=== PATIENT | female | born 1950 | race Caucasian/White ===

== ENCOUNTER → 2017-01-11 | Outpatient (CLI) | payer MEDICARE, OTHER ==
[~2017-01-11] MED LIST: ACET-2267 PO; APIX5TAB2 PO; ASPI-983 PO; ASPI325T32 PO; Aspirin PO; BISA5TAB8 PO; BISMUTH; BO30SU PR; CARV12.52 PO; CARV12.53 PO; CHOL10007 PO; CHOL200049 PO; CYAN100088 PO; CYCL5TAB PO; DCS100C PO; DIAZ5TAB3 PO; DIGO250T PO; DIPH25CA6 PO; DIPH28CR8 TP; DIPH50CA PO; DOXE25CA46 PO; DULO60CA58 PO; FENO145T20 PO; FERR-74 PO; FEXO180T84 PO; FURO40TA4 PO; GABA-488 PO; GABA-490 PO; GLIP10TA13 PO; HYDR-3714 PO; HYDR-3812 PO; HYDR50TA76 PO; HYOS0.1217 SL; INSU100I23 SC; INSU100I29 SC; INSU100V SC; INSU100V5 SQ; INSU100V6 SQ; LEVO300T5 PO; LISI-556 PO; LOPE-134 PO; LORA0.5T34 PO; LVT.025T PO; MELA3TAB PO; MELA5TAB PO; MENT71OI TP; METO-333 PO; METO10TA3 PO; METO25TA2 PO; MINE120C3 TP; MORP-33 PO; MORP15TA PO; MORPHINE PO; NITR-65 PO; NYST1POW22 MC; NYST60PO TOP; OMEP20CA12 PO; ONDA4TAB11 PO; ONDA4TAB2 PO; PHEN-826 PO; POLY255P PO; POTA10TA36 PO; POTA20TA15 PO; PRAM1.5T5 PO; PROM25TA14 PO; RIVA20TA PO; SPIR25TA3 PO; SPRN25T PO; SULF-222 PO; TEMA15CA PO; TMZP15C PO; TR1C15 TOP; TRIA15CR TP; [UNRECOGNIZED DRUG - CODE] PO
[2017-01-11 21:17] LABS: BILIRUBIN,URINE NEGATIVE (NEGATIVE); KETONES,URINE NEGATIVE (NEGATIVE); LEUKOCYTE ESTERASE ,URINE 2+ (NEGATIVE); NITRITE,URINE NEGATIVE (NEGATIVE); PH,URINE 7 (5-9); PROTEIN,URINE NEGATIVE (NEGATIVE); UROBILINOGEN,URINE 4 MG/DL (NORMAL)
== END ==
LOC: LABNPT 16:38
PROVIDERS: ATTEND Nurse Practitioner
DX: R30.0 Dysuria (principal)
CPT/HCPCS: 81000; 87077; 87088; 87186

== ENCOUNTER 2017-03-06 10:21 | Inpatient (IN) | payer MEDICARE, OTHER, MEDICAID ==
[~2017-03-06] VITALS: Ht 170.2 cm; Wt 209.2 kg
--- OUTSIDE RECORDS SUMMARY | 2017-03-06 10:27 | XMS REPORT ---
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 Role Phone Aristeo Young PCP Encounter [id number] Date(s): 02/13/17 - 02/08/[address] [id number] Attending Physician: Aristeo Young MD Vital Signs No data available for this section Problem List Condition Effective Dates Status Health Status Informant Allergic Active rhinitis(Confirmed) Diabetes(Confirmed) Active Hypertension(Confirm Active ed) Morbid Active obesity(Confirmed) Obstructive sleep Active apnea syndrome in adult(Confirmed) Respiratory Active acidosis(Confirmed) Respiratory failure Active with hypoxia(Confirmed) Allergies, Adverse Reactions, Alerts Substance Reaction Severity Status Levaquin Active mushrooms Active nafcillin Active Medications No data available for this section Results No data available for this section Immunizations Given and Recorded Vaccine Date Status Refusal Reason influenza virus vaccine 07/18/15 Given influenza virus vaccine 06/06/12 Given Procedures No data available for this section Social History No data available for this section Assessment and Plan No data available for this section
--- OUTSIDE RECORDS SUMMARY | 2017-03-06 10:27 | XMS REPORT | Continuity of Care Document ---
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. Acute renal failure syndrome (disorder) 07/22/2015 Diagnosis 07/26/2015 [facility], [facility]. Chronic pain (finding) 07/22 Diagnosis 07/26/2015 [facility], [facility]. Low blood pressure (disorder) 07/22/2015 Diagnosis 2014 [facility], [facility]. Restless legs (disorder) Diagnosis 07/26/2015 [facility], [facility]. Diabetes mellitus (disorder) 07/17/2015 Diagnosis 2014 [facility], [facility]. Obstructive sleep apnea of adult (disorder) 07/17/2015 Diagnosis 07/26/2015 [facility], [facility]. Respiratory failure (disorder) 07/17/2015 Diagnosis 07/26 [facility], [facility]. Respiratory acidosis (disorder) 07/17/2015 Diagnosis [facility] , [facility]. Morbid obesity (disorder) Diagnosis 07/26/2015 [facility], [facility]. Allergic rhinitis (disorder) Active Problem 02/12/2017 [facility], [facility] Diabetes mellitus (disorder) Active Problem 02/12/2017 [facility], [facility] Hypertensive disorder, systemic arterial (disorder) Active Problem 02/12/2017 [facility], [facility] Morbid obesity (disorder) Active Problem 02/12/2017 [facility], [facility], [facility]. Obstructive sleep apnea of adult (disorder) Active Problem 02/12/2017 [facility], [facility]. Respiratory acidosis (disorder) Active Problem 2016 [facility] Respiratory failure (disorder) Active Problem 02/12/2017 [facility] , [facility]. Medications Medication Details Route Status Patient Instructions Ordering Provider Order Date Source No Known Medications No known medications Active Psychiatric Allergies, Adverse Reactions, Alerts Substance Category Reaction Severity Reaction type Status Date Reported Comments Source Levofloxacin Assertion Drug allergy [facility], [facility]. mushrooms Assertion Food allergy [facility], [facility]. Nafcillin Assertion Drug allergy [facility], [facility]. Immunizations Immunization Date Given Site Status Last Updated Comments Source influenza virus vaccine 07/18/2015 Right Deltoid influenza virus vaccine [place] [facility] influenza virus vaccine 06/06/2012 Right Deltoid influenza virus vaccine [place] [facility], [facility]. Results Vital Signs Encounters Location Location Details Encounter Type Encounter Number Reason For Visit Attending Provider ADM Date DC Date Status [id number] [id number] Ludin Gaytan 07/17/201507/22 Active [facility], [facility]. OM [id number] Inpatient [id number] Jeff Grossman 10/28/2015 11/14/2015 Active [facility], [facility]. [facility] [id number] Clinic ( Outpatient) [id number] . [facility] INR Clinic 10/31/2015 Active [facility] Cancel/ No Show [id number] Lori Veronica 12/14/2015 12/16/2015 [facility] [id number] Clinic ( Outpatient) [id number] Aristeo Young 12/26/2016 Active [facility] [id number] Clinic ( Outpatient) [id number] Aristeo Young 02/13/2017 Active [facility] [id number] Aristeo Young 02/13/2017 02/08/2017 [facility] Procedures Procedure Code Date Perfomer Comments Source Echocardiography, transthoracic, real-time with image documentation (2D), includes M-mode recording, when performed, complete, with spectral Doppler echocardiography, and with color flow Doppler echocardiography [id number] 10/28/2015 [facility], [facility]. No data available for this section [facility] Plan of Care Social History Assessment and Plan Family History Value Date Source Advance Directives Order Name Results Value Date Source
--- OUTSIDE RECORDS SUMMARY | 2017-03-06 10:28 | XMS REPORT | Continuity of Care Document ---
Author Author [facility] Organization 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 If you do not see the information that you expected, contact Release of Information in the Health Information Management department at [phone] for further assistance in locating additional records.[facility] Active Allergies and Adverse Reactions Allergen Noted Date Severity Reactions Comments Mushroom 09/23/2012 Low NAUSEA AND VOMITING Nafcillin 10/15/2013 Low SEE COMMENTS Acute interstitial nephritis Current Medications Prescription Sig. Disp. Refills Start End Date Status Date oxybutynin XL (DITROPAN Take 10 mg by mouth Active XL) 10 mg tablet daily. aspirin EC 325 mg tablet Take 1 Tab by mouth 90 Tab 0 09/11/19 Active daily. 13 cholecalciferol (Vitamin Take 2,000 Units by mouth Active D3) (VITAMIN D-3) 1,[address] daily[address] units tablet DULoxetine [address] (CYMBALTA) Take 60 mg by mouth Active 60 mg capsule daily. pramipexole (MIRAPEX) 1.5 Take 1.5 mg by mouth at Active mg tablet bedtime daily. 1 mg at 18:00, 1.5 mg at 21:00 ondansetron (ZOFRAN ODT) Take 4 mg by mouth every Active 4 mg rapid dissolve 8 hours as needed. tablet pramipexole (MIRAPEX) 1 Take 1 mg by mouth daily. Active mg tablet 1 mg at 18:00, 1.5 mg at 21:00 nystatin (MYCOSTATIN) Take 500,000 Units by Active 100,000 units/mL oral mouth four times daily. suspension omeprazole DR(+) Take 20 mg by mouth twice Active (PRILOSEC) 20 mg capsule daily. morphine SR (MS CONTIN; Take 15 mg by mouth every Active ORAMORPH SR) 15 mg tablet 12 hours Take 30mg tab with 15 mg tab for a total dose of 45mg twice daily docusate (COLACE) 100 mg Take 100 mg by mouth Active capsule twice daily as needed. fexofenadine(+) (CYRUS) Take 180 mg by mouth Active 180 mg tablet daily as needed. lisinopril (PRINIVIL; Take 20 mg by mouth Active ZESTRIL) 20 mg tablet daily. LORazepam (ATIVAN) 0.5 mg Take 0.5 mg by mouth Active tablet every 8 hours as needed. melatonin 10 mg tab Take 10 mg by mouth at Active bedtime daily. metformin-ER(+) Take 1,000 mg by mouth Active (FORTAMET) 1,000 mg twice daily with meals. tablet lactobacillus acidoph & Take 1 Tab by mouth Active bulgar(+) (LACTINEX) 100 daily. million cell packet levothyroxine (SYNTHROID) Take 1 Tab by mouth 30 Tab 0 10/07/19 Active 300 mcg tablet daily. 14 glipiZIDE (GLUCOTROL) 5 Take 1 Tab by mouth daily 180 Tab 10/16/19 Active mg tablet with breakfast. 14 carvedilol (COREG) 12.5 Take 0.5 Tabs by mouth 180 Tab 10/16/19 Active mg tablet twice daily with meals. 14 gabapentin (NEURONTIN) Take 1 Cap by mouth three 90 Cap 10/16/19 Active 100 mg capsule times daily. 14 temazepam (RESTORIL) 7.5 Take 1 Cap by mouth at 30 Cap 1 10/16/19 Active mg capsule bedtime as needed. 14 cyclobenzaprine Take 0.5 Tabs by mouth 60 Tab 10/16/19 Active (FLEXERIL) 10 mg tablet three times daily as 14 needed. lidocaine (LIDODERM) 5 % Apply 1 Patch to hip 30 Patch 10/16/19 Active topical patch daily. Apply patch ONCE 14 DAILY to hip and REMOVE after 12 hours. Apply only to intact skin. Patch may be cut to fit affected area. furosemide (LASIX) 80 mg Take 0.5 Tabs by mouth 90 Tab 10/16/19 Active tablet twice daily. 14 Active Problems Problem Noted Date Hypercapnia 10/14/2013 Hypoventilation associated with obesity syndrome (HCC) 10/05/2013 SOB (shortness of breath) 10/04/2013 Septic shock(785.52) 06/01/2013 UTI (lower urinary tract infection) 06/01/2013 Hyperkalemia 06/01/2013 Hyperglycemia 06/01/2013 Anemia 06/01/2013 Metabolic alkalosis 06/01/2013 Hypoalbuminemia 06/01/2013 Severe sepsis(995.92) 05/30/2013 Acute respiratory failure with hypercapnia (HCC) 05/30/2013 Acute renal failure (HCC) 05/30/2013 Chronic indwelling Ace catheter 05/13/2013 Overview: Prolonged immobility and limited ambulation (unable to pivot) due to left femur fracture and underlying disability secondary to polio. Recurrent UTI and difficulty with hygiene. No past urologic history other than occasional UTI and will likely be prolonged--but not permanent--catheter placement. L ast Assessment & Plan: Ms. Aguilera is a candidate for SP tube due to her prolonged need for catheterization. Strong cautions regarding need for immediate evaluation and tube replacement if the catheter is removed were provided today. The risk of urinary tract infection will not be decreased for Ms. Aguilera and this was discussed with her, however due to the risk of urethral erosion and bladder neck damage over time with an indwelling urethral catheter she is a candidate for a suprapubic tube. Informed consent obtained for SP tube placement 06/09/13. She will see PAT today. Ancef and preop orders written in clinic. 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/2012 Social History Tobacco Use Types Packs/Day Years Used Date Never Smoker Smokeless Tobacco: Never Used Alcohol Use Drinks/Week oz/Week Comments Yes 0 Standard 0.0 drinks or equivalent Last Filed Vital Signs Vital Sign Reading Time Taken Blood Pressure 158/75 10/16/2013 3:16 PM SENIOR GRADUATE ADVISOR Pulse 73 10/16/2013 3:16 PM SENIOR GRADUATE ADVISOR Temperature 36.8 C (98.2 F) 10/16/2013 3:16 PM SENIOR GRADUATE ADVISOR Respiratory Rate - - Height 1.702 m (5' 7") 10/14/2013 11:03 PM SENIOR GRADUATE ADVISOR Weight 207.929 kg (458 lb 6.4 10/16/2013 2:59 AM SENIOR GRADUATE ADVISOR oz) Body Mass Index 71.78 10/16/2013 2:59 AM SENIOR GRADUATE ADVISOR Oxygen Saturation 98% 10/16/2013 3:16 PM SENIOR GRADUATE ADVISOR Plan of Care Health Maintenance Due Date Last Done Comments Hepatitis C Screening 1952 Physical (Comprehensive) 1959 Exam Pertussis Vaccine 1963 Tetanus Vaccine 1969 Dilated Eye Exam 1970 Foot Exam 1970 Microalbumin 1970 Cervical Cancer Screening 1973 Breast Cancer Screening 1992 Colorectal Cancer 2002 Screening Shingles Vaccine 2012 Hba1c 04/03/2014 10/04/2013, 07/10/2012 Influenza Vaccine 05/10/2017 Results from Last 3 Months Not on file
[2017-03-06 10:51] LABS: BASOPHILS % (AUTO) 0 % (0-10); EOSINOPHILS # (AUTO) 0.1 10^3/uL (0.0-0.3); EOSINOPHILS % (AUTO) 1 % (0-10); LYMPHOCYTES % (AUTO) 12 % (12-44); MEAN CORPUSCULAR HEMOGLOBIN 27 PG (25-34); MEAN CORPUSCULAR HGB CONC 31 G/DL (32-36); MEAN CORPUSCULAR VOLUME 87 FL (80-99); MEAN PLATELET VOLUME 10.2 FL (7.4-10.4); MONOCYTES # (AUTO) 0.6 X 10^3 (0.0-1.0); MONOCYTES % (AUTO) 8 % (0-12); NEUTROPHILS # (AUTO) 6.5 X 10^3 (1.8-7.8); NEUTROPHILS % (AUTO) 79 % (42-75); PLATELET COUNT 240 10^3/uL (130-400); RED BLOOD COUNT 4.32 10^6/uL (4.35-5.85); RED CELL DISTRIBUTION WIDTH 14.4 % (10.0-14.5); WHITE BLOOD COUNT 8.2 10^3/uL (4.3-11.0)
--- NOTE | 2017-03-06 10:54 | ED General ---
General Chief Complaint: Lower Extremity Stated Complaint: LEFT KNEE PAIN Nursing Triage Note: PT ARRIVED PER EMS FROM ID IN [place], PT CO OF LOWER L EXT PAIN FOR A WEEK, WAS X-RAYED ON SATURDAY NO FX TO BE NOTED. PT HAS TEMP 100.5, PT IS MORBIDLY OBESE LOWER EXT EXTREMELY SWOLLEN AND REDDEND, SKIN FOLDS HAVE REDNESS AND WARMTH NOTED Nursing Sepsis Screen: No Definite Risk Source of Information: Patient Exam Limitations: No Limitations History of Present Illness Time Seen by Provider: 10:25 Initial Comments Here with report of left lower extremity pain for the last week. Had an x-ray on Saturday which noted no fracture per the patient. Today she has pain that's worsening. Initially the pain was lower in the leg but now is getting much worse and moving up the leg. Leg is noted to be red and increasingly swollen and very tender to the touch from the ankle to the thigh. Patient reports that she did not have a fever earlier but has one now. Reports that she is currently on antibiotics for urinary tract infection. Timing/Duration: 1 Week, Getting Worse Severity: Moderate Modifying Factors: improves with Immobilization, improves with Medication, worse with Movement Associated Systoms: No Chest Pain, No Cough, Fever/Chills, No Nausea/Vomiting, No Shortness of Air, No Weakness Allergies and Home Medications Allergies Coded Allergies: levofloxacin (Verified Allergy, Unknown, 05/19/16) mushroom (Unverified Allergy, Unknown, 06/21/16) FROM UNCODED ALLERGIES nafcillin (Unverified Allergy, Unknown, 02/27/15) Home Medications Acetaminophen 500 Mg Tablet, 1,000 MG PO Q8H PRN for TEMP ABOVE 100.5, (Reported ) TAKES 2 (500MG) TABLETS Aspirin 81 Mg Tablet.dr, 81 MG PO DAILY, (Reported) Belladonna Alkaloids/Opium 30 Mg Supp, 60 MG WA Q6H PRN for SPASMS, #12 Prescribed by: MARIA ALEJANDRA SOMERS on 06/28/16 0951 Bisacodyl 5 Mg Tablet.dr, 5 MG PO DAILY PRN for CONSTIPATION, (Reported) Bisacodyl 5 Mg Tablet.dr, 10 MG PO DAILY PRN for SEVERE CONSTIPATION, (Reported) TAKES 2 (5MG) TABLETS Cholecalciferol (Vitamin D3) 1,000 Unit Capsule, 1,000 UNIT PO DAILY, (Reported) Cyanocobalamin (Vitamin B-12) 1,000 Mcg Tablet, 1,000 MCG PO DAILY, (Reported) Diazepam 5 Mg Tablet, 2.5 MG PO Q12H PRN for ANXIETY, #30 TAKES 1/2 (5MG) TABLET Prescribed by: MARIA ALEJANDRA SOMERS on 06/28/1651 Digoxin 250 Mcg Tablet, 250 MCG PO DAILY, (Reported) Diphenhydramine HCl 25 Mg Capsule, 25 MG PO Q4H PRN for ITCHING, (Reported) Diphenhydramine HCl/Zinc Acet 28 Gm Cream..g., TP Q8H PRN for ITCHING, (Reported ) Docusate Sodium 100 Mg Cap, 100 MG PO BID, (Reported) Doxepin HCl 25 Mg Capsule, 25 MG PO HS, (Reported) Duloxetine HCl 60 Mg Capsule.dr, 60 MG PO DAILY, (Reported) Fenofibrate Nanocrystallized 145 Mg Tablet, 145 MG PO DAILY, (Reported) Ferrous Sulfate 325 Mg Tablet, 325 MG PO DAILY, (Reported) Furosemide 40 Mg Tablet, 100 MG PO TID, (Reported) TAKES 2.5 (40MG) TABLETS Glipizide 10 Mg Tablet, 10 MG PO BID WITH MEALS, (Reported) Hydrocodone/Acetaminophen 1 Each Tablet, 1 TAB PO Q6H PRN for PAIN, #60 Prescribed by: MARIA ALEJANDRA SOMERS on 06/28/16950 Hydroxyzine HCl 50 Mg Tablet, 50 MG PO Q8H, (Reported) Hyoscyamine Sulfate 0.125 Mg/Tab Tab.rapdis, 0.125 MG SL Q6H PRN for SPASMS, ( Reported) Insulin Detemir 100 Unit/1 Ml Insuln.pen, 81 UNITS SC BID, (Reported) Insulin Lispro 100 Unit/1 Ml Insuln.pen, 45 UNITS SC TIDWM, (Reported) Levothyroxine Sodium 200 Mcg Tablet, 400 MCG PO DAILY, (Reported) TAKES 2 (200MCG) TABLETS Loperamide HCl 2 Mg Tablet, 2 MG PO UD PRN for LOOSE STOOLS, (Reported) TAKE 2 TABLETS AFTER FIRST LOOSE STOOL AND 1 AFTER EACH FOLLOWING NTE 4/24 HOURS Melatonin 3 Mg Tablet, 3 MG PO HS, (Reported) Menthol/Lanolin/Calamine/Znox 71 Gm Oint, TP BID, (Reported) APPLY TO COCCYX Metoclopramide HCl 10 Mg Tablet, 10 MG PO Q6H PRN for NAUSEA, (Reported) Metoprolol Tartrate 25 Mg Tablet, 25 MG PO BID, (Reported) Mineral Oil/Petrolatum,White 120 Gm Cream..g., TP Q6H PRN for DRY SKIN, ( Reported) Morphine Sulfate 15 Mg Tablet.er, 15 MG PO Q12H PRN for PAIN, #60 Prescribed by: MARIA ALEJANDRA SOMERS on 06/28/16950 Nystatin 60 Gm Powder, TOP BID, (Reported) APPLY UNDER ABDOMINAL FOLDS Omeprazole 20 Mg Capsule.dr, 20 MG PO BID, (Reported) Ondansetron 4 Mg Tab.rapdis, 4 MG PO Q4H PRN for NAUSEA/VOMITING, (Reported) Phenazopyridine HCl 100 Mg Tablet, 100 MG PO TIDPC for 7 Days Prescribed by: MARIA ALEJANDRA SOMERS on 06/28/16950 Polyethylene Glycol 3350 255 Gm Powder, 17 GM PO HS PRN for CONSTIPATION, ( Reported) Potassium Chloride 20 Meq Tab.er.prt, 40 MEQ PO BID, (Reported) TAKES 2 (20MEQ) TABLETS Pramipexole Di-HCl 1.5 Mg Tablet, 1.5 MG PO 1800, (Reported) Pramipexole Di-Hcl 1.5 Mg Tablet, 3 MG PO HS, (Reported) TAKES 2 (1.5MG) TABLETS Promethazine HCl 25 Mg Tablet, 12.5 MG PO Q6H PRN for ANTIMETIC, (Reported) TAKES 1/2 (25MG) TABLET Rivaroxaban 20 Mg Tablet, 20 MG PO 1700, (Reported) Spironolactone 25 Mg Tablet, 25 MG PO DAILY, (Reported) Temazepam 15 Mg Capsule, 15 MG PO HS PRN for INSOMNIA, #30 Prescribed by: MARIA ALEJANDRA SOMERS on 06/28/16950 Triamcinolone Acet 15 Gm Cr, TOP BID, (Reported) APPLY TO UPPER ARMS Constitutional: see HPI, No chills, No fever EENTM: no symptoms reported Respiratory: no symptoms reported, No cough, No short of breath Cardiovascular: No chest pain, edema Gastrointestinal: no symptoms reported, No nausea, No vomiting Genitourinary: see HPI : No Musculoskeletal: see HPI, joint swelling, muscle pain Skin: see HPI, change in color, lesions (skinfolds) All Other Systems Reviewed Negative Unless Noted: Yes Past Nvdtptn-Bisoia-Fbboct Hx Patient Social History Alcohol Use: Denies Use Recreational Drug Use: No Smoking Status: Never a Smoker Recent Foreign Travel: No Contact w/Someone Who Travel: No Recent Infectious Disease Expo: No Recent Hopitalizations: No Immunizations Up To Date Tetanus Booster (TDap): Unknown PED Vaccines UTD: No Date of Pneumonia Vaccine: Feb 27, 2014 Seasonal Allergies Seasonal Allergies: No Surgeries HX Surgeries: Yes (13 SURGERIES ON LEFT FOOT FROM POLIO, 2 SURG RIGHT LEG AT AGE 16) Surgeries: Gallbladder, Orthopedic, Tonsillectomy Respiratory Hx Respiratory Disorders: Yes (CPAP/O2 4L WHEN LYING DOWN, PULMONARY HYPERTENSION ) Respiratory Disorders: Sleep Apnea Cardiovascular Hx Cardiac Disorders: Yes (CHF) Cardiac Disorders: Congenital Heart Disease, Hypertension Neurological Hx 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) Neurological Disorders: Neuropathy Reproductive System Hx Reproductive Disorders: No Genitourinary Hx Genitourinary Disorders: Yes Genitourinary Disorders: Bladder Infection, Renal Failure, UTI-Chronic Gastrointestinal Hx Gastrointestinal Disorders: Yes Gastrointestinal Disorders: Gastroesophageal Reflux, Jacques's Esophagus, Gastrointestinal Bleed, Hemorrhoids, Pancreatitis, Polyps, Gall Bladder Disease Musculoskeletal Hx Musculoskeletal Disorders: Yes (RESTLESS LEG SYNDROME, FEMUR FX, POLIOMYELITIS , OSTEO ARTHRITIS) Musculoskeletal Disorders: Arthritis, Foot Drop, Fractures Endocrine Hx Endocrine Disorders: Yes Endocrine Disorders: Diabetes, Insulin dep, Hypothyroidsim HEENT HX ENT Disorders: No Cancer Hx Cancer: No Psychosocial Hx Psychiatric Problems: Yes Behavioral Health Disorders: Sleep Difficulties, Anxiety, Depression Integumentary HX Skin/Integumentary Disorder: Yes (CELLULITIS) Blood Transfusions Hx Blood Disorders: Yes (BORDERLINE ANEMIA ) Reviewed Nursing Assessment Reviewed/Agree w Nursing PMH: Yes Family Medical History Family Medial History: Bone cancer UNCLE Colon cancer 19 FATHER FH: skin cancer UNCLE Stomach cancer PATERNAL GRANDMOTHER Physical Exam-Suspected Sepsis Physical Exam Vital Signs Vital Sign - Last 12Hours 03/06/17 10:25 Temp 100.5 Pulse 79 Resp 18 B/P (MAP) 119/60 Pulse Ox 97 Capillary Refill : Less Than 3 Seconds Blood Pressure Mean: 79 General Appearance: No Apparent Distress, WD/WN, Obese HEENT: PERRL/EOMI, Pharynx Normal Neck: Non Tender, Supple Respiratory: Lungs Clear, Normal Breath Sounds Cardiovascular: Regular Rate, Rhythm, No Murmur Gastrointestinal: Non Tender, Soft Back: Normal Inspection, No CVA Tenderness, No Vertebral Tenderness Extremity: Inflammation, Swelling, Other (left leg red, hot and swollen. Skin folds have yeast type VII within the folds and increased erythema and pain.) Neurologic/Psychiatric: Alert, Oriented x3, Normal Mood/Affect Skin: normal color, warm/dry Focused Exam Lactic Acid Level Laboratory Tests Test 03/06/17 10:35 Lactic Acid Level 2.31 MMOL/L (0.50-2.00) *H Progress/Results/Core Measures Suspected Sepsis Recent Fever Within 48 Hours: No Infection Criteria Present: Suspected New Infection New/Unexplained Altered Menta: No Sepsis Screen: No Definite Risk Sepsis Diagnosis: SIRS Temperature:100.5 Pulse: 79 Respiratory Rate: 18 Laboratory Tests 03/06/17 10:35: White Blood Count 8.2 Blood Pressure 119 /60 Mean: 79 Laboratory Tests 03/06/17 10:35: Creatinine 1.02, INR Comment 1.2, Platelet Count 240, Total Bilirubin 1.3H Results/Orders Lab Results Laboratory Tests Test 03/06/17 10:35 03/06/17 11:10 Range/Units White Blood Count 8.2 4.3-11.0 10^3/uL Red Blood Count 4.32 L 4.35-5.85 10^6/uL Hemoglobin 11.7 11.5-16.0 G/DL Hematocrit 38 35-52 % Mean Corpuscular Volume 87 80-99 FL Mean Corpuscular Hemoglobin 27 25-34 PG Mean Corpuscular Hemoglobin Concent 31 L 32-36 G/DL Red Cell Distribution Width 14.4 10.0-14.5 % Platelet Count 240 130-400 10^3/uL Mean Platelet Volume 10.2 7.4-10.4 FL Neutrophils (%) (Auto) 79 H 42-75 % Lymphocytes (%) (Auto) 12 12-44 % Monocytes (%) (Auto) 8 0-12 % Eosinophils (%) (Auto) 1 0-10 % Basophils (%) (Auto) 0 0-10 % Neutrophils # (Auto) 6.5 1.8-7.8 X 10^3 Lymphocytes # (Auto) 1.0 1.0-4.0 X 10^3 Monocytes # (Auto) 0.6 0.0-1.0 X 10^3 Eosinophils # (Auto) 0.1 0.0-0.3 10^3/uL Basophils # (Auto) 0.0 0.0-0.1 10^3/uL Prothrombin Time 14.8 H 12.2-14.7 SEC INR Comment 1.2 0.8-1.4 Activated Partial Thromboplast Time 41 H 24-35 SEC Sodium Level 133 L 135-145 MMOL/L Potassium Level 4.0 3.6-5.0 MMOL/L Chloride Level 93 L 98-107 MMOL/L Carbon Dioxide Level 29 21-32 MMOL/L Anion Gap 11 5-14 MMOL/L Blood Urea Nitrogen 25 H 7-18 MG/DL Creatinine 1.02 0.60-1.30 MG/DL Estimat Glomerular Filtration Rate 55 BUN/Creatinine Ratio 25 Glucose Level 483 *H 70-105 MG/DL Lactic Acid Level 2.31 *H 0.50-2.00 MMOL/L Calcium Level 9.5 8.5-10.1 MG/DL Total Bilirubin 1.3 H 0.1-1.0 MG/DL Aspartate Amino Transf (AST/SGOT) 35 H 5-34 U/L Alanine Aminotransferase (ALT/SGPT) 37 0-55 U/L Alkaline Phosphatase 196 H 40-136 U/L Total Protein 7.7 6.4-8.2 GM/DL Albumin 3.1 L 3.2-4.5 GM/DL Urine Color YELLOW Urine Clarity CLEAR Urine pH 6 5-9 Urine Specific Thelma 1.010 L 1.016-1.022 Urine Protein NEGATIVE NEGATIVE Urine Glucose (UA) 4+ H NEGATIVE Urine Ketones NEGATIVE NEGATIVE Urine Nitrite POSITIVE H NEGATIVE Urine Bilirubin NEGATIVE NEGATIVE Urine Urobilinogen 4 H NORMAL MG/DL Urine Leukocyte Esterase NEGATIVE NEGATIVE Urine RBC (Auto) NEGATIVE NEGATIVE Urine RBC NONE /HPF Urine WBC RARE /HPF Urine Squamous Epithelial Cells 0-2 /HPF Urine Crystals NONE /LPF Urine Bacteria MODERATE H /HPF Urine Casts NONE /LPF Urine Mucus NEGATIVE /LPF Urine Culture Indicated YES My Orders Orders - HARRIS AGUSTIN MD Cbc With Automated Diff (03/06/17 10:38) Comprehensive Metabolic Panel (03/06/17 10:38) Lactic Acid Analyzer (03/06/17 10:38) Blood Culture (03/06/17 10:38) Sputum Culture (03/06/17 10:38) Ua Culture If Indicated (03/06/17 10:38) Protime With Inr (03/06/17 10:38) Partial Thromboplastin Time (03/06/17 10:38) Chest 1 View, Ap/Pa Only (03/06/17 10:38) O2 (03/06/17 10:38) Saline Lock/Iv-Start (03/06/17 10:38) Vital Signs Adult Sepsis Patie Q1HR (03/06/17 10:38) Remove Rings In Anticipation O (03/06/17 10:38) Urine Culture (03/06/17 11:10) Saline Lock/Iv-Start (03/06/17 11:36) Ns Iv 500 Ml (Sodium Chloride 0.9%) (03/06/17 11:36) Ceftriaxone Injection (Rocephin Injectio (03/06/17 11:45) Insulin (Regular) Human (Humulin R (Per (03/06/17 11:36) Meropenem 500 Mg Iv (1x Dose) (03/06/17 12:00) Medications Given in ED Current Medications Medications Dose Ordered Sig/Jaylon Route Start Time Stop Time Status Last Admin Dose Admin Sodium Chloride 500 ml @ 0 mls/hr Q0M ONCE IV 03/06/17 11:36 03/06/17 11:38 DC 03/06/17 11:45 999 MLS/HR Vital Signs/I&O Vital Sign - Last 12Hours 03/06/17 10:25 Temp 100.5 Pulse 79 Resp 18 B/P (MAP) 119/60 Pulse Ox 97 Capillary Refill : Less Than 3 Seconds Blood Pressure Mean: 79 Progress Note : Progress Note Seen and evaluated. IV, labs, UA, Ace catheter, blood cultures and lactic acid ordered. Lactate noted to be elevated and urine noted to be infected. Concerns for cellulitis as well. Normal saline 500 mL bolus. Rocephin 1 g IV and insulin 10 units IV ordered. 1140: I did discuss the case with Dr. Somers and she accepts patient for admission, inpatient status. 1145: I spoke with the pharmacist, Dr. Ralf Amezquita, and he is recommending meropenem given patient 's history of Ebl positive status with respect to her urine. This is ordered and Rocephin was canceled prior to administration. Admit, inpatient status. Patient agrees with plan. Patient has findings of severe sepsis but not septic shock and does not require high-volume fluid resuscitation or pressors at this time. Diagnostic Imaging Diagonstic Imaging: Xray Plain Films/CT/US/NM/MRI: chest Comments NAME: VALENCIA TAVAREZ [facility] REC#: [id number] PT STATUS: REG ER : 1950 PHYSICIAN: HARRIS AGUSTIN MD ADMIT DATE: 03/06/17/ER Signed Date of Exam: 03/06/17 CHEST 1 VIEW, AP/PA ONLY EXAMINATION: Portable upright radiograph of the chest. INDICATION: Extremity pain and swelling. FINDINGS: The heart size is moderately enlarged. There is mild pulmonary vascular congestion. There is minimal opacity in the right lung base, favored to be atelectasis. No effusion or pneumothorax. The mediastinum and los appear unremarkable. IMPRESSION: Cardiomegaly with pulmonary vascular congestion. 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 Referrals: REMI BHATTI MD (PCP/Family) Primary Care Physician HARRIS AGUSTIN MD Mar 06, 2017 10:54
[2017-03-06 11:08] LABS: INR 1.2 (0.8-1.4); PROTHROMBIN TIME PATIENT 14.8 SEC (12.2-14.7)
[2017-03-06 11:16] LABS: ALBUMIN 3.1 GM/DL (3.2-4.5); BILIRUBIN,TOTAL 1.3 MG/DL (0.1-1.0); CALCIUM 9.5 MG/DL (8.5-10.1); CREATININE SERUM 1.02 MG/DL (0.60-1.30); TOTAL PROTEIN 7.7 GM/DL (6.4-8.2)
[2017-03-06 11:16] LABS: BILIRUBIN,URINE NEGATIVE (NEGATIVE); KETONES,URINE NEGATIVE (NEGATIVE); LEUKOCYTE ESTERASE ,URINE NEGATIVE (NEGATIVE); NITRITE,URINE POSITIVE (NEGATIVE); PH,URINE 6 (5-9); PROTEIN,URINE NEGATIVE (NEGATIVE); UROBILINOGEN,URINE 4 MG/DL (NORMAL)
--- NOTE | 2017-03-06 11:23 | Diagnostic Imaging Report ---
EXAMINATION: Portable upright radiograph of the chest. INDICATION: Extremity pain and swelling. FINDINGS: The heart size is moderately enlarged. There is mild pulmonary vascular congestion. There is minimal opacity in the right lung base, favored to be atelectasis. No effusion or pneumothorax. The mediastinum and los appear unremarkable. IMPRESSION: Cardiomegaly with pulmonary vascular congestion. Dictated by: Dictated on workstation # [id number]
[2017-03-06 11:24] LABS: SQUAMOUS EPITHELIAL CELL,UR 0-2 /HPF; WBC,URINE RARE /HPF
[2017-03-06] MEDS ORDERED: inSUlin (REGULAR) HUMAN 1 UNIT/0.01 ML (CHARGE PER UNIT) IV STA (11:36)
[2017-03-06] MEDS ORDERED: NS IV 500 ML 500 ML IV ONE (11:36)
[2017-03-06] MEDS ORDERED: cefTRIAXone INJECTION 1,000 MG in NS (IVPB) 50 ML IV ONE (11:45)
[2017-03-06] MEDS ORDERED: MEROPENEM 500 MG in NS (IVPB) 100 ML IV ONE (12:00)
[2017-03-06] MEDS ORDERED: HYDROcodone/APAP 7.5 MG/325 MG (LORTAB, LORCET PLUS) TABLET PO STA (12:02)
--- OUTSIDE RECORDS SUMMARY | 2017-03-06 12:45 | XMS REPORT | Continuity of Care Document ---
Author Author [employer] Organization [facility] Address Unknown Phone Unavailable Care Team Providers Care Architect Name Role Phone [employer] Unavailable Unavailable Problems Problem Status Onset Date Classification Date Reported Comments Source Hematochezia (finding) 11/09 Diagnosis 11/18/2015 [facility], [facility]. Acute renal failure syndrome (disorder) 07/22/2015 Diagnosis 07/26/2015 [facility], [facility]. Chronic pain (finding) 07/22 Diagnosis 07/26/2015 [facility], [facility]. Low blood pressure (disorder) 07/22/2015 Diagnosis 2014 [facility], [facility]. Restless legs (disorder) Diagnosis 07/26/2015 [facility], [facility]. Diabetes mellitus (disorder) 07/17/2015 Diagnosis 2014 [facility], [facility]. Obstructive sleep apnea of adult (disorder) 07/17/2015 Diagnosis 07/26/2015 [facility], [facility]. Respiratory failure (disorder) 07/17/2015 Diagnosis 07/26 [facility], [facility]. Respiratory acidosis (disorder) 07/17/2015 Diagnosis [facility] , [facility]. Morbid obesity (disorder) Diagnosis 07/26/2015 [facility], [facility]. Allergic rhinitis (disorder) Active Problem 02/12/2017 [facility], [facility] Diabetes mellitus (disorder) Active Problem 02/12/2017 [facility], [facility] Hypertensive disorder, systemic arterial (disorder) Active Problem 02/12/2017 [facility], [facility] Morbid obesity (disorder) Active Problem 02/12/2017 [facility], [facility], [facility]. Obstructive sleep apnea of adult (disorder) Active Problem 02/12/2017 [facility], [facility]. Respiratory acidosis (disorder) Active Problem 2016 [facility] Respiratory failure (disorder) Active Problem 02/12/2017 [facility] , [facility]. Medications Medication Details Route Status Patient Instructions Ordering Provider Order Date Source No Known Medications No known medications Active [facility] Allergies, Adverse Reactions, Alerts Substance Category Reaction Severity Reaction type Status Date Reported Comments Source Levofloxacin Assertion Drug allergy [facility], [facility]. mushrooms Assertion Food allergy [facility], [facility]. Nafcillin Assertion Drug allergy [facility], [facility]. Immunizations Immunization Date Given Site Status Last Updated Comments Source influenza virus vaccine 07/18/2015 Right Deltoid influenza virus vaccine Nargis [facility] influenza virus vaccine 06/06/2012 Right Deltoid influenza virus vaccine Lainey [facility], [facility]. Results Vital Signs Encounters Location Location Details Encounter Type Encounter Number Reason For Visit Attending Provider ADM Date DC Date Status Source [facility] [id number] Inpatient [id number] Ludin Gaytan 07/17/201507/22 Active [facility], [facility]. OM [id number] Inpatient [id number] Jeff Grossman 10/28/2015 11/14/2015 Active [facility], [facility]. [facility] [id number] Clinic ( Outpatient) [id number] . [facility] 10/31/2015 Active [facility] Cancel/ No Show [id number] Lori Veronica 12/14/2015 12/16/2015 [facility] [id number] Clinic ( Outpatient) [id number] Aristeo Young 12/26/2016 Active [facility] [id number] Clinic ( Outpatient) [id number] Aristeo Young 02/13/2017 Active [facility] [id number] Aristeo Young 02/13/2017 02/08/2017 [facility] Procedures Procedure Code Date Perfomer Comments Source Echocardiography, transthoracic, real-time with image documentation (2D), includes M-mode recording, when performed, complete, with spectral Doppler echocardiography, and with color flow Doppler echocardiography [id number] 10/28/2015 [facility], [facility]. No data available for this section [facility] Plan of Care Social History Assessment and Plan Family History Value Date Source Advance Directives Order Name Results Value Date Source
--- OUTSIDE RECORDS SUMMARY | 2017-03-06 12:45 | XMS REPORT | Continuity of Care Document ---
Author Author [facility] Organization [facility] Address Unknown Phone Unavailable Care Team Providers Care Streetcar Repairer Name Role Phone Aristeo Young PCP [phone] Source Comments Some departments are not documenting in the electronic medical record. If you do not see the information that you expected, contact Release of Information in the Health Information Management department at [phone] for further assistance in locating additional records.[facility] Active Allergies and Adverse Reactions Allergen [...] preop orders written in clinic. 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/2012 Social History Tobacco Use Types Packs/Day Years Used Date Never Smoker Smokeless Tobacco: Never Used Alcohol Use Drinks/Week oz/Week Comments Yes 0 Standard 0.0 drinks or equivalent Last Filed Vital Signs Vital Sign Reading Time Taken Blood Pressure 158/75 10/16/2013 3:16 PM PACKING AND WRAPPING SUPERVISOR Pulse 73 10/16/2013 3:16 PM P[employer]ING AND WRAPPING SUPERVISOR Temperature 36.8 C (98.2 F) 10/16/2013 3:16 PM [employer] AND WRAPPING SUPERVISOR Respiratory Rate - - Height 1.702 m (5' 7") 10/14/2013 11:03 PM PACKING AND WRAPPING SUPERVISOR Weight 207.929 kg (458 lb 6.4 10/16/2013 2:59 AM PACKING AND WRAPPING SUPERVISOR oz) Body Mass Index 71.78 10/16/2013 2:59 AM PACKING AND WRAPPING SUPERVISOR Oxygen Saturation 98% 10/16/2013 3:16 PM PACKING AND WRAPPING SUPERVISOR Plan of Care Health Maintenance Due Date [...]
[2017-03-06 12:50] VITALS: BP 114/61
[2017-03-06] MEDS: NS IV 1000 ML 1,000 ML IV SCH (13:56)
[2017-03-06] MEDS ORDERED: VANCOMYCIN INJECTION 2,500 MG in NS IV 500 ML 500 ML IV NR (14:00)
[2017-03-06] MEDS ORDERED: MORP-33 PO (15:06)
[2017-03-06] MEDS ORDERED: METF500T8 PO (15:06)
[2017-03-06] MEDS ORDERED: HYDR-3812 PO (15:06)
[2017-03-06] MEDS ORDERED: GLYC15DR3 OS (15:06)
[2017-03-06] MEDS ORDERED: KETO15CR2 TP (15:06)
[2017-03-06] MEDS ORDERED: ALPR0.254 PO (15:06)
[2017-03-06] MEDS ORDERED: TRIAMCINOLONE 0.1% TOP (15:06)
[2017-03-06] MEDS ORDERED: INSU100V16 SQ ×2 (15:06)
[2017-03-06] MEDS ORDERED: GUAI100L36 PO (15:06)
[2017-03-06] MEDS ORDERED: ONDA4TAB10 PO (15:06)
[2017-03-06] MEDS ORDERED: HYDR28OI2 TP (15:06)
[2017-03-06] MEDS ORDERED: DEXT15LI5 PO (15:24)
[2017-03-06] MEDS ORDERED: PRAM1.5T5 PO (15:24)
[2017-03-06 16:15] VITALS: BP 120/72
[2017-03-06] MEDS: MEROPENEM 500 MG/NS 100 ML IVPB IV SCH ×4 (17:05→23:07)
[2017-03-06] MEDS: inSUlin (REGULAR) HUMAN 1 UNIT/0.01 ML (CHARGE PER UNIT) SC SCH ×2 (17:05→21:56)
[2017-03-06] MEDS: HYDROcodone/APAP 7.5 MG/325 MG (LORTAB, LORCET PLUS) TABLET PO PRN (18:31)
[2017-03-06 19:50] VITALS: BP 121/69
[2017-03-06] MEDS ORDERED: PRAMIPEXOLE 0.5 MG TAB (MIRAPEX) ONE (23:45)
[2017-03-06] MEDS: PRAMIPEXOLE 0.5 MG TAB (MIRAPEX) PO SCH (23:51)
[2017-03-07] MEDS: HYDROcodone/APAP 7.5 MG/325 MG (LORTAB, LORCET PLUS) TABLET PO PRN ×4 (00:39→20:49)
[2017-03-07 00:49] VITALS: BP 112/61
[2017-03-07] MEDS ORDERED: VANCOMYCIN 1 GM/NS 250 ML IVPB IV SCH ×2 (02:00)
[2017-03-07 04:12] VITALS: BP 116/63
[2017-03-07] MEDS: MEROPENEM 500 MG/NS 100 ML IVPB IV SCH ×6 (06:04→19:27)
[2017-03-07] MEDS: inSUlin (REGULAR) HUMAN 1 UNIT/0.01 ML (CHARGE PER UNIT) SC SCH ×4 (06:35→20:37)
[2017-03-07 06:54] LABS: BASOPHILS % (AUTO) 0 % (0-10); EOSINOPHILS # (AUTO) 0.1 10^3/uL (0.0-0.3); EOSINOPHILS % (AUTO) 2 % (0-10); LYMPHOCYTES % (AUTO) 14 % (12-44); MEAN CORPUSCULAR HEMOGLOBIN 27 PG (25-34); MEAN CORPUSCULAR HGB CONC 31 G/DL (32-36); MEAN CORPUSCULAR VOLUME 87 FL (80-99); MEAN PLATELET VOLUME 10.1 FL (7.4-10.4); MONOCYTES # (AUTO) 0.7 X 10^3 (0.0-1.0); MONOCYTES % (AUTO) 9 % (0-12); NEUTROPHILS # (AUTO) 5.6 X 10^3 (1.8-7.8); NEUTROPHILS % (AUTO) 75 % (42-75); PLATELET COUNT 238 10^3/uL (130-400); RED BLOOD COUNT 4.32 10^6/uL (4.35-5.85); RED CELL DISTRIBUTION WIDTH 14.4 % (10.0-14.5); WHITE BLOOD COUNT 7.5 10^3/uL (4.3-11.0)
[2017-03-07 08:00] VITALS: BP 123/69
[2017-03-07] MEDS: NS IV 1000 ML 1,000 ML IV SCH (09:05)
[2017-03-07] MEDS ORDERED: RX-HYDROCODONE/APAP 5/325 MG #4 TAB PK PO PRN (10:00)
[2017-03-07] MEDS ORDERED: BISACODYL 5 MG (DULCOLAX) TABLET PO PRN ×2 (10:00)
[2017-03-07] MEDS ORDERED: EUCERIN CREAM 16 OZ JAR (HYDROCERIN) TP PRN (10:00)
[2017-03-07] MEDS: ENOXAPARIN 40 MG/0.4 ML (LOVENOX) SYR SC SCH (10:32)
--- NOTE | 2017-03-07 11:02 | History & Physical-Hospitalist ---
HPI History of Present Illness: HPI/Chief Complaint CC: Left red leg HPI: This is a 66 [address] Cook who presented to the ER yesterday with left leg cellulitis, UTI, and hyperglycemia. Pt's BMI is in the 70s and sugar level was in the 400s in ER. WBC 7.5 Lactic acid was 2.31 now dropped to 1.64, will heplock IVF, blood sugars now in the 300s Patient Interview: Pt confirms being at [facility]. Pt believes that her leg is not as red and her toes look better. Pt states that when she was rolled by nursing staff, her leg rubbed uncomfortably. Physical exam stable. Pt states that she has been eating and drinking Pt has not been ambulating but is being moved by nursing staff I informed pt that I will restart her home meds Pt denies wound care Scribed by Suze Laguerre under the direct supervision of Dr. Somers. Source: patient Exam Limitations: no limitations Date Seen 03/07/17 Time Seen by Provider: 10:00 Attending Physician Emelina Somers DO PCP Josh Cook MD Referring Physician Date of Admission Mar 06, 2017 at 11:40 Home Medications & Allergies Home Medications Reviewed patient Home Medication Reconciliation Form Allergies Allergies Coded Allergies levofloxacin (Verified Allergy, Unknown, 05/19/16) mushroom (Unverified Allergy, Unknown, 06/21/16) FROM UNCODED ALLERGIES nafcillin (Unverified Allergy, Unknown, 02/27/15) Past [id number]-[id number]-[id number] Hx Patient Social History Marrital Status: single Employed/Student: unemployed Alcohol Use: Denies Use Recreational Drug Use: No Smoking Status: Never a Smoker Physical Abuse Screen: No Sexual Abuse: No Recent Foreign Travel: No Contact w/other who traveled: No Recent Hopitalizations: No Recent Infectious Disease Expo: No Immunizations Up To Date Tetanus Booster (TDap): Unknown Date of Pneumonia Vaccine: Feb 27, 2014 Seasonal Allergies Seasonal Allergies: No Surgeries HX Surgeries: Yes (13 SURGERIES ON LEFT FOOT FROM POLIO, 2 SURG RIGHT LEG AT AGE 16) Surgeries: Gallbladder, Orthopedic, Tonsillectomy Respiratory Hx Respiratory Disorders: Yes (CPAP/O2 4L WHEN LYING DOWN, PULMONARY HYPERTENSION ) Respiratory Disorders: COPD, Pneumonia, Sleep Apnea Cardiovascular Hx Cardiovascular Disorders: Yes (CHF) Cardiac Disorders: Congenital Heart Disease, Hypertension Neurological Hx 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) Neurological Disorders: Neuropathy Reproductive System Hx Reproductive Disorders: No Sexually Transmitted Disease: No Female Reproductive Disorders: Denies Genitourinary Hx Genitourinary Disorders: Yes Genitourinary Disorders: Bladder Infection, Renal Failure, UTI-Chronic Gastrointestinal Hx Gastrointestinal Disorders: Yes Gastrointestinal Disorders: Gastroesophageal Reflux, Jacques's Esophagus, Hemorrhoids, Pancreatitis, Polyps, C-Diff, Gall Bladder Disease Musculoskeletal Hx Musculoskeletal Disorders: Yes (RESTLESS LEG SYNDROME, FEMUR FX, POLIOMYELITIS , OSTEO ARTHRITIS) Musculoskeletal Disorders: Arthritis, Foot Drop, Fractures Endocrine Hx Endocrine Disorders: Yes Endocrine Disorders: Diabetes, Insulin dep, Hypothyroidsim HEENT HX ENT Disorders: No Loss of Vision: Denies Hearing Impairment: Denies Cancer Hx Cancer: No Psychosocial Hx Psychiatric Problems: Yes Behavioral Health Disorders: Sleep Difficulties, Anxiety, Depression Integumentary HX Skin/Integumentary Disorder: Yes (CELLULITIS) Blood Transfusions Hx Blood Disorders: Yes (BORDERLINE ANEMIA ) Reviewed Nursing Assessment Reviewed/Agree w Nursing PMH: Yes Family Medical History Family Hx: Bone cancer UNCLE Colon cancer 19 FATHER FH: skin cancer UNCLE Stomach cancer PATERNAL GRANDMOTHER Review of Systems Date Seen by Provider: Mar 07, 2017 Time Seen by Provider: 10:00 Constitutional: see HPI, chills, fever EENTM: no symptoms reported Respiratory: no symptoms reported Cardiovascular: no symptoms reported Gastrointestinal: no symptoms reported Genitourinary: no symptoms reported Musculoskeletal: back pain Skin: see HPI Psychiatric/Neurological: No Symptoms Reported All Other Systems Reviewed Negative Unless Noted: Yes Physical Exam Physical Exam Vital Signs Vital Sign - Last 12Hours 03/06/17 03/06/17 10:25 12:16 Temp 100.5 Pulse 79 Resp 18 B/P (MAP) 119/60 Pulse Ox 97 O2 Delivery Nasal Cannula O2 Flow Rate 4.00 Capillary Refill : Less Than 3 Seconds General Appearance: No Apparent Distress, WD/WN, Chronically ill, Obese ( morbid obesity) Eyes: Bilateral Eye Normal Inspection, Bilateral Eye PERRL HEENT: PERRL/EOMI, Normal ENT Inspection, Pharynx Normal Neck: Full Range of Motion, Normal Inspection, Non Tender, Supple, Carotid Bruit Respiratory: Chest Non Tender, Lungs Clear, Normal Breath Sounds, No Accessory Muscle Use, No Respiratory Distress Cardiovascular: Regular Rate, Rhythm, No Edema, No Gallop, No JVD, No Murmur, Normal Peripheral Pulses Gastrointestinal: Normal Bowel Sounds, No Organomegaly, No Pulsatile Mass, Non Tender, Soft Back: Normal Inspection, No CVA Tenderness, No Vertebral Tenderness Extremity: Normal Capillary Refill, Normal Inspection, Normal Range of Motion, Non Tender, No Calf Tenderness, No Pedal Edema Neurologic/Psychiatric: Alert, Oriented x3, No Motor/Sensory Deficits, Normal Mood/Affect Skin: Normal Color, Warm/Dry, Other (improved redness left lower leg no open wounds) Lymphatic: No Adenopathy Results Results/Procedures Lab Laboratory Tests 03/06/17 10:35 03/07/17 06:16 Assessment/Plan Admission Diagnosis Assessment: Sepsis due to lower extremity cellulitis Morbid obesity HTN DM IKE HLP Chronic constipation Assessment and Plan Plan: Restart home meds Initiate Lovenox for DVT prophylaxis Check am labs Continue abx Clinical Quality Measures DVT/VTE Risk/Contraindication: Risk Factor Score Per Nursin RFS Level Per Nursing on Admit: 4+=Very High EMELINA SOMERS DO Mar 07, 2017 11:02
[2017-03-07] MEDS ORDERED: ONDANSETRON 4 MG (ZOFRAN) ORAL DISSOLVE TAB PO PRN (11:30)
[2017-03-07] MEDS: DULoxetine 30 MG (CYMBALTA) CAP PO SCH (11:30)
[2017-03-07] MEDS ORDERED: ARTIFICAL TEARS 0.4 ML UNIT DOSE (REFRESH PLUS) OS PRN (11:30)
[2017-03-07] MEDS ORDERED: guaiFENesin/DM (ROBITUSSIN DM) 10 ML UDC PO PRN (11:30)
[2017-03-07] MEDS: inSUlin ASPART (NovoLOG) 1 UNIT/0.01 ML (CHARGE PER UNIT) SQ SCH ×3 (11:31→18:29)
[2017-03-07 12:00] VITALS: BP 133/84
[2017-03-07] MEDS: FUROSEMIDE 40 MG (LASIX) TAB PO SCH ×2 (12:24→20:35)
[2017-03-07] MEDS: hydrOXYzine (VISTARIL) 25 MG CAP PO SCH ×2 (12:25→20:35)
[2017-03-07] MEDS ORDERED: TROUGH ORDER-PHARMACY XX NR (13:00)
[2017-03-07] MEDS: ACETAMINOPHEN 500 MG TAB (TYLENOL) PO PRN (14:41)
[2017-03-07 15:40] VITALS: BP 118/71
[2017-03-07] MEDS: RIVAROXABAN 20 MG TABLET (XARELTO) PO SCH (17:53)
[2017-03-07] MEDS ORDERED: NON-FORMULARY MEDICATION 1 EA EA (Pramipexole Di-HCl (Pramipexole Dihydrochloride) 1.5 MG) PO SCH (18:00)
[2017-03-07] MEDS: PRAMIPEXOLE 0.5 MG TAB (MIRAPEX) PO SCH ×2 (18:30→20:40)
[2017-03-07] MEDS ORDERED: PRAMIPEXOLE DI HCL 3 MG PO SCH (20:00)
[2017-03-07 20:30] VITALS: BP 133/72
[2017-03-07] MEDS: KCL 20 MEQ TAB (K-DUR) PO SCH (20:35)
[2017-03-07] MEDS: metFORMIN XR 500 MG (GLUCOPHAGE XR) TAB PO SCH (20:35)
[2017-03-07] MEDS: morphine ER 15 MG (MS CONTIN) TAB PO SCH (20:36)
[2017-03-07] MEDS: meTOprolol TARTRATE 25 MG (LOPRESSOR) TABLET PO SCH (20:36)
[2017-03-07] MEDS: inSUlin DETERMIR 1 UNIT/0.01 ML (LEVEMIR) CHARGE PER UNIT SQ SCH (20:36)
[2017-03-07] MEDS: KETOCONAZOLE 2% CREAM 15 GM (NIZORAL) TP SCH (20:38)
[2017-03-07] MEDS: ALPRAZolam 0.25 MG (XANAX) TAB PO PRN (20:49)
[2017-03-07] MEDS ORDERED: POLYETHYLENE GLYCOL 17 GM (MIRALAX) PACK PO PRN (21:00)
[2017-03-08] VITALS: BP 117/62
[2017-03-08] MEDS: MEROPENEM 500 MG/NS 100 ML IVPB IV SCH ×8 (00:34→19:48)
[2017-03-08] MEDS: HYDROcodone/APAP 7.5 MG/325 MG (LORTAB, LORCET PLUS) TABLET PO PRN ×4 (01:55→18:57)
[2017-03-08 03:39] VITALS: BP 122/68
[2017-03-08] MEDS: inSUlin ASPART (NovoLOG) 1 UNIT/0.01 ML (CHARGE PER UNIT) SQ SCH ×5 (06:50→17:50)
[2017-03-08] MEDS: inSUlin (REGULAR) HUMAN 1 UNIT/0.01 ML (CHARGE PER UNIT) SC SCH ×4 (06:50→21:16)
[2017-03-08] MEDS: LEVOTHYROXINE 100 MCG (LEVOTHROID) TAB PO SCH (06:50)
[2017-03-08 07:10] LABS: BASOPHILS % (AUTO) 1 % (0-10); EOSINOPHILS # (AUTO) 0.2 10^3/uL (0.0-0.3); EOSINOPHILS % (AUTO) 2 % (0-10); LYMPHOCYTES # (AUTO) 1.2 X 10^3 (1.0-4.0); LYMPHOCYTES % (AUTO) 15 % (12-44); MEAN CORPUSCULAR HEMOGLOBIN 27 PG (25-34); MEAN CORPUSCULAR HGB CONC 31 G/DL (32-36); MEAN CORPUSCULAR VOLUME 87 FL (80-99); MEAN PLATELET VOLUME 9.7 FL (7.4-10.4); MONOCYTES # (AUTO) 0.6 X 10^3 (0.0-1.0); MONOCYTES % (AUTO) 7 % (0-12); NEUTROPHILS # (AUTO) 6.1 X 10^3 (1.8-7.8); NEUTROPHILS % (AUTO) 75 % (42-75); PLATELET COUNT 275 10^3/uL (130-400); RED BLOOD COUNT 4.54 10^6/uL (4.35-5.85); RED CELL DISTRIBUTION WIDTH 14.5 % (10.0-14.5)
[2017-03-08 07:28] LABS: ALANINE AMINOTRANSFERASE 33 U/L (0-55); ALBUMIN 3.2 GM/DL (3.2-4.5); ANION GAP 9 MMOL/L (5-14); ASPARTATE AMINO TRANSFERASE 28 U/L (5-34); BILIRUBIN,TOTAL 1.2 MG/DL (0.1-1.0); BLOOD UREA NITROGEN 22 MG/DL (7-18); BUN/CREATININE RATIO 24; CALCIUM 9.6 MG/DL (8.5-10.1); CARBON DIOXIDE 34 MMOL/L (21-32); CHLORIDE 94 MMOL/L (98-107); CREATININE SERUM 0.92 MG/DL (0.60-1.30); GFR ESTIMATED > 60; GLUCOSE 240 MG/DL (70-105); POTASSIUM 3.8 MMOL/L (3.6-5.0); SODIUM 137 MMOL/L (135-145); TOTAL PROTEIN 7.9 GM/DL (6.4-8.2)
[2017-03-08] MEDS: DIGOXIN 0.25 MG (LANOXIN) TAB PO SCH (08:18)
[2017-03-08] MEDS: metFORMIN XR 500 MG (GLUCOPHAGE XR) TAB PO SCH ×2 (08:18→20:18)
[2017-03-08] MEDS: SPIRONOLACTONE 25 MG (ALDACTONE) TAB PO SCH (08:19)
[2017-03-08] MEDS: DULoxetine 30 MG (CYMBALTA) CAP PO SCH (08:19)
[2017-03-08] MEDS: PANTOPRAZOLE 20 MG TABLET (PROTONIX) PO SCH (08:19)
[2017-03-08] MEDS: FERROUS SULF 325 MG (IRON) TAB PO SCH (08:19)
[2017-03-08] MEDS: hydrOXYzine (VISTARIL) 25 MG CAP PO SCH ×3 (08:19→20:16)
[2017-03-08] MEDS: ASPIRIN E.C. 81 MG (ECOTRIN) TAB PO SCH (08:19)
[2017-03-08] MEDS: CYANOCOBALAMIN 500 MCG TAB (VITAMIN B-12) PO SCH (08:19)
[2017-03-08] MEDS: VITAMIN D3 1,000 UNITS (CHOLECALCIFEROL) TABLET PO SCH (08:19)
[2017-03-08] MEDS: KCL 20 MEQ TAB (K-DUR) PO SCH ×2 (08:19→20:17)
[2017-03-08] MEDS: DOCUSATE SODIUM 100 MG (COLACE) CAP PO SCH (08:19)
[2017-03-08] MEDS: meTOprolol TARTRATE 25 MG (LOPRESSOR) TABLET PO SCH ×2 (08:19→20:18)
[2017-03-08] MEDS: ENOXAPARIN 40 MG/0.4 ML (LOVENOX) SYR SC SCH (08:20)
[2017-03-08] MEDS: FUROSEMIDE 40 MG (LASIX) TAB PO SCH ×3 (08:20→20:17)
[2017-03-08] MEDS: KETOCONAZOLE 2% CREAM 15 GM (NIZORAL) TP SCH ×2 (08:20→20:21)
[2017-03-08] MEDS: inSUlin DETERMIR 1 UNIT/0.01 ML (LEVEMIR) CHARGE PER UNIT SQ SCH ×2 (08:20→21:15)
[2017-03-08] MEDS: FENOFIBRATE 134 MG (LOFIBRA) CAPSULE PO SCH (08:26)
[2017-03-08 08:30] VITALS: BP 122/66
--- NOTE | 2017-03-08 10:40 | Progress Note-Hospitalist ---
Progress Note HPI/CC on Admission CC: Left red leg HPI: This is a 66 yoWF pt of [address] Cook who presented to the ER yesterday with left leg cellulitis, UTI, and hyperglycemia. Pt's BMI is in the 70s and sugar level was in the 400s in ER. WBC 7.5 Lactic acid was 2.31 now dropped to 1.64, will heplock IVF, blood sugars now in the 300s Patient Interview: Pt confirms being at [facility]. Pt believes that her leg is not as red and her toes look better. Pt states that when she was rolled by nursing staff, her leg rubbed uncomfortably. Physical exam stable. Pt states that she has been eating and drinking Pt has not been ambulating but is being moved by nursing staff I informed pt that I will restart her home meds Pt denies wound care Scribed by Suze Laguerre under the direct supervision of Dr. Carvajal. 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 Pt may benefit from a move to 422. Patient Interview: Pt states that he left leg is causing her severe pain, much like a broken bone. The pain radiates to her groin. The redness has dissipated. Pt states that the hydrocodone is not helping. Pt states that she would like a higher dose of pain meds but is curious about what is causing her pain. Labs discussed with pt, everything looks good except sugars. I encouraged pt to move a bit in her bed. Pt states that she hates the bed and cannot move in it. Laboratory Tests 03/08/17 07:05 Assessment: Sepsis due to left lower extremity cellulitis Morbid obesity HTN DM IKE HLP Chronic constipation Plan: Restart home meds Maintain Lovenox for DVT prophylaxis Check am labs Continue abx Possible move to 422 where she would have more aid in moving Scribed by Suze Laguerre under the direct supervision of Dr. Carvajal. MARIA ALEJANDRA CARVAJAL DO Mar 08, 2017 10:40
[2017-03-08 12:30] VITALS: BP 113/53
[2017-03-08] MEDS: MICONAZOLE 2% POWDER (DESENEX AF) 90 GM TOP SCH ×2 (13:42→20:21)
[2017-03-08 16:20] VITALS: BP 132/70
[2017-03-08] MEDS: RIVAROXABAN 20 MG TABLET (XARELTO) PO SCH (17:44)
[2017-03-08] MEDS: PRAMIPEXOLE 0.5 MG TAB (MIRAPEX) PO SCH ×2 (17:44→20:17)
[2017-03-08] MEDS: morphine ER 15 MG (MS CONTIN) TAB PO SCH (20:18)
[2017-03-08 20:20] VITALS: BP 104/55
[2017-03-08] MEDS: ALPRAZolam 0.25 MG (XANAX) TAB PO PRN (23:51)
[2017-03-09] VITALS: BP 128/76
[2017-03-09] MEDS: MEROPENEM 500 MG/NS 100 ML IVPB IV SCH ×8 (00:52→18:00)
[2017-03-09] MEDS: HYDROcodone/APAP 7.5 MG/325 MG (LORTAB, LORCET PLUS) TABLET PO PRN ×3 (00:52→21:56)
[2017-03-09] MEDS: ACETAMINOPHEN 500 MG TAB (TYLENOL) PO PRN (05:04)
[2017-03-09] MEDS: LEVOTHYROXINE 100 MCG (LEVOTHROID) TAB PO SCH (06:03)
[2017-03-09] MEDS: inSUlin ASPART (NovoLOG) 1 UNIT/0.01 ML (CHARGE PER UNIT) SQ SCH ×5 (06:04→17:15)
[2017-03-09] MEDS: inSUlin (REGULAR) HUMAN 1 UNIT/0.01 ML (CHARGE PER UNIT) SC SCH ×4 (06:04→20:00)
[2017-03-09 08:29] VITALS: BP 104/60
[2017-03-09] MEDS: MICONAZOLE 2% POWDER (DESENEX AF) 90 GM TOP SCH ×2 (09:29→20:48)
[2017-03-09] MEDS: ENOXAPARIN 40 MG/0.4 ML (LOVENOX) SYR SC SCH (09:29)
[2017-03-09] MEDS: KETOCONAZOLE 2% CREAM 15 GM (NIZORAL) TP SCH ×2 (09:29→20:49)
[2017-03-09] MEDS: VITAMIN D3 1,000 UNITS (CHOLECALCIFEROL) TABLET PO SCH (09:30)
[2017-03-09] MEDS: CYANOCOBALAMIN 500 MCG TAB (VITAMIN B-12) PO SCH (09:30)
[2017-03-09] MEDS: DOCUSATE SODIUM 100 MG (COLACE) CAP PO SCH (09:30)
[2017-03-09] MEDS: FERROUS SULF 325 MG (IRON) TAB PO SCH (09:30)
[2017-03-09] MEDS: inSUlin DETERMIR 1 UNIT/0.01 ML (LEVEMIR) CHARGE PER UNIT SQ SCH ×2 (09:30→21:57)
[2017-03-09] MEDS: meTOprolol TARTRATE 25 MG (LOPRESSOR) TABLET PO SCH ×2 (09:31→20:34)
[2017-03-09] MEDS: FUROSEMIDE 40 MG (LASIX) TAB PO SCH ×3 (09:31→20:33)
[2017-03-09] MEDS: ALPRAZolam 0.25 MG (XANAX) TAB PO PRN ×2 (09:32→21:56)
[2017-03-09] MEDS: hydrOXYzine (VISTARIL) 25 MG CAP PO SCH ×3 (09:32→20:34)
[2017-03-09] MEDS: DULoxetine 30 MG (CYMBALTA) CAP PO SCH (09:32)
[2017-03-09] MEDS: DIGOXIN 0.25 MG (LANOXIN) TAB PO SCH (09:32)
[2017-03-09] MEDS: SPIRONOLACTONE 25 MG (ALDACTONE) TAB PO SCH (09:32)
[2017-03-09] MEDS: FENOFIBRATE 134 MG (LOFIBRA) CAPSULE PO SCH (09:32)
[2017-03-09] MEDS: PANTOPRAZOLE 20 MG TABLET (PROTONIX) PO SCH (09:32)
[2017-03-09] MEDS: KCL 20 MEQ TAB (K-DUR) PO SCH ×2 (09:33→20:31)
[2017-03-09] MEDS: ASPIRIN E.C. 81 MG (ECOTRIN) TAB PO SCH (09:33)
[2017-03-09] MEDS: metFORMIN XR 500 MG (GLUCOPHAGE XR) TAB PO SCH ×2 (09:33→20:31)
[2017-03-09 16:00] VITALS: BP 119/70
[2017-03-09] MEDS: RIVAROXABAN 20 MG TABLET (XARELTO) PO SCH (17:15)
[2017-03-09] MEDS: PRAMIPEXOLE 0.5 MG TAB (MIRAPEX) PO SCH ×2 (17:15→20:31)
[2017-03-09] MEDS: morphine ER 15 MG (MS CONTIN) TAB PO SCH (20:33)
[2017-03-09] MEDS: MELATONIN 3 MG TABLET PO PRN (22:46)
[2017-03-10 00:30] VITALS: BP 112/69
[2017-03-10] MEDS: MEROPENEM 500 MG/NS 100 ML IVPB IV SCH ×10 (01:10→23:29)
[2017-03-10] MEDS: LEVOTHYROXINE 100 MCG (LEVOTHROID) TAB PO SCH (06:19)
[2017-03-10] MEDS: inSUlin ASPART (NovoLOG) 1 UNIT/0.01 ML (CHARGE PER UNIT) SQ SCH ×5 (06:20→17:19)
[2017-03-10] MEDS: inSUlin (REGULAR) HUMAN 1 UNIT/0.01 ML (CHARGE PER UNIT) SC SCH ×4 (06:29→21:27)
[2017-03-10 08:09] VITALS: BP 137/71
[2017-03-10] MEDS: HYDROcodone/APAP 7.5 MG/325 MG (LORTAB, LORCET PLUS) TABLET PO PRN ×3 (09:00→21:26)
[2017-03-10] MEDS: FENOFIBRATE 134 MG (LOFIBRA) CAPSULE PO SCH (09:01)
[2017-03-10] MEDS: PANTOPRAZOLE 20 MG TABLET (PROTONIX) PO SCH (09:01)
[2017-03-10] MEDS: metFORMIN XR 500 MG (GLUCOPHAGE XR) TAB PO SCH ×2 (09:01→21:25)
[2017-03-10] MEDS: ASPIRIN E.C. 81 MG (ECOTRIN) TAB PO SCH (09:01)
[2017-03-10] MEDS: hydrOXYzine (VISTARIL) 25 MG CAP PO SCH ×3 (09:02→21:25)
[2017-03-10] MEDS: SPIRONOLACTONE 25 MG (ALDACTONE) TAB PO SCH (09:03)
[2017-03-10] MEDS: CYANOCOBALAMIN 500 MCG TAB (VITAMIN B-12) PO SCH (09:03)
[2017-03-10] MEDS: FUROSEMIDE 40 MG (LASIX) TAB PO SCH ×3 (09:03→21:24)
[2017-03-10] MEDS: KCL 20 MEQ TAB (K-DUR) PO SCH ×2 (09:04→21:25)
[2017-03-10] MEDS: DOCUSATE SODIUM 100 MG (COLACE) CAP PO SCH (09:06)
[2017-03-10] MEDS: VITAMIN D3 1,000 UNITS (CHOLECALCIFEROL) TABLET PO SCH (09:06)
[2017-03-10] MEDS: FERROUS SULF 325 MG (IRON) TAB PO SCH (09:06)
[2017-03-10] MEDS: DIGOXIN 0.25 MG (LANOXIN) TAB PO SCH (09:06)
[2017-03-10] MEDS: meTOprolol TARTRATE 25 MG (LOPRESSOR) TABLET PO SCH ×2 (09:07→21:26)
[2017-03-10] MEDS: DULoxetine 30 MG (CYMBALTA) CAP PO SCH (09:18)
[2017-03-10] MEDS: inSUlin DETERMIR 1 UNIT/0.01 ML (LEVEMIR) CHARGE PER UNIT SQ SCH ×2 (09:19→21:26)
[2017-03-10] MEDS: MICONAZOLE 2% POWDER (DESENEX AF) 90 GM TOP SCH ×2 (09:20→21:27)
[2017-03-10] MEDS: KETOCONAZOLE 2% CREAM 15 GM (NIZORAL) TP SCH ×2 (09:21→21:27)
--- NOTE | 2017-03-10 12:16 | Progress Note (SOAP) ---
Subjective Subjective/Events-last exam Pt complaining that she is in intense pain when she is moved. She states her leg is looking much better. Review of Systems Date Seen by Provider: Mar 09, 2017 Time Seen by Provider: 10:30 General: No Chills, No Night Sweats Objective Exam Last Set of Vital Signs Vital Signs Date Time Temp Pulse Resp B/P (MAP) Pulse Ox O2 Delivery O2 Flow Rate FiO2 03/10/17 08:09 98.8 96 20 137/71 97 Nasal Cannula 4.00 Capillary Refill : Less Than 3 Seconds I&O Intake and Output 03/10/17 00:00 Intake Total 3300 ml Output Total 6800 ml Balance -3500 ml Intake Oral 3100 ml IV Total 200 ml Output Urine Total 6800 ml # Bowel Movements 1 General: Alert, Oriented X3, Cooperative, Other (morbid obesity) Lungs: Clear to Auscultation, Normal Air Movement Heart: Regular Rate, Normal S1, Normal S2, No Murmurs, Gallops, Rubs Abdomen: Normal Bowel Sounds, Soft, No Tenderness, No Hepatosplenomegaly Skin: Other (severe lymphedema, cellulitis improved with les erythema) Results/Procedures Lab Laboratory Tests 03/09/17 15:22: Glucometer 206H 03/09/17 19:59: Glucometer 140H 03/10/17 06:20: Glucometer 158H 03/10/17 09:01: Glucometer 152H Microbiology 03/06/17 Blood Culture - Preliminary, Resulted No growth 03/06/17 Urine Culture - Final, Complete Escherichia Coli See Comments Assessment/Plan Assessment/Plan Plan SEPSIS - RESOLVED SINCE ADMISSION CELLULITIS 03/09 - much improved. no change in mgmt today. ESBL POSITIVE ACUTE CYSTITIS 03/09 - continue meropenem. likely due to chronic sesay, which I believe she has. PAIN CONTROL 03/09 - Explained to patient that her body habitus does make it hard to move her, and we are doing the best we can. she is already on an air mattress in a bariatric bed. Diagnosis/Problems: Clinical Quality Measures DVT/VTE Risk/Contraindication: Risk Factor Score Per Nursin RFS Level Per Nursing on Admit: 4+=Very High SADIE BOWDEN MD Mar 10, 2017 12:16
--- NOTE | 2017-03-10 12:22 | Progress Note (SOAP) ---
Subjective Subjective/Events-last exam Pt states she is improved today, has no complaints. Review of Systems Date Seen by Provider: Mar 10, 2017 Time Seen by Provider: 10:40 Gastrointestinal: No: Nausea, Vomiting Objective Exam Last Set of Vital Signs Vital Signs Date Time Temp Pulse Resp B/P (MAP) Pulse Ox O2 Delivery O2 Flow Rate FiO2 03/10/17 08:09 98.8 96 20 137/71 97 Nasal Cannula 4.00 Capillary Refill : Less Than 3 Seconds I&O Intake and Output 03/10/17 00:00 Intake Total 3300 ml Output Total 6800 ml Balance -3500 ml Intake Oral 3100 ml IV Total 200 ml Output Urine Total 6800 ml # Bowel Movements 1 General: Alert, Oriented X3, Cooperative, No Acute Distress Lungs: Clear to Auscultation, Normal Air Movement Heart: Regular Rate, Normal S1, Normal S2, No Murmurs, Gallops, Rubs Abdomen: Normal Bowel Sounds, Soft, No Tenderness Skin: Other (minimal erythema - looks to be at baseline; no warmth) Results/Procedures Lab Laboratory Tests 03/09/17 15:22: Glucometer 206H 03/09/17 19:59: Glucometer 140H 03/10/17 06:20: Glucometer 158H 03/10/17 09:01: Glucometer 152H Microbiology 03/06/17 Blood Culture - Preliminary, Resulted No growth 03/06/17 Urine Culture - Final, Complete Escherichia Coli See Comments Assessment/Plan Assessment/Plan Plan SEPSIS - RESOLVED SINCE ADMISSION CELLULITIS 03/09 - much improved. no change in mgmt today. 03/10 - continues to improve ESBL POSITIVE ACUTE CYSTITIS 03/09 - continue meropenem. likely due to chronic sesay, which I believe she has. 03/10 - not sure if this was sterile pyuria or an actual infection, is being treated, so believe it was infection, christine with the fever at presentation. will likely need 10 days at least of merrem. probably needs swing bed because the NH cannot do the merrem there. PAIN CONTROL 03/09 - Explained to patient that her body habitus does make it hard to move her, and we are doing the best we can. she is already on an air mattress in a bariatric bed. Diagnosis/Problems: Clinical Quality Measures DVT/VTE Risk/Contraindication: Risk Factor Score Per Nursin RFS Level Per Nursing on Admit: 4+=Very High SADIE BOWDEN MD Mar 10, 2017 12:22
[2017-03-10 15:44] VITALS: BP 117/64
[2017-03-10] MEDS: RIVAROXABAN 20 MG TABLET (XARELTO) PO SCH (17:18)
[2017-03-10] MEDS: PRAMIPEXOLE 0.5 MG TAB (MIRAPEX) PO SCH ×2 (18:16→21:23)
[2017-03-10] MEDS: MELATONIN 3 MG TABLET PO PRN (21:25)
[2017-03-10] MEDS: ALPRAZolam 0.25 MG (XANAX) TAB PO PRN (21:25)
[2017-03-10] MEDS: morphine ER 15 MG (MS CONTIN) TAB PO SCH (21:29)
[2017-03-11] VITALS: BP 114/71
[2017-03-11] MEDS: HYDROcodone/APAP 7.5 MG/325 MG (LORTAB, LORCET PLUS) TABLET PO PRN ×4 (03:49→22:56)
[2017-03-11] MEDS: MEROPENEM 500 MG/NS 100 ML IVPB IV SCH ×6 (06:33→17:50)
[2017-03-11] MEDS: LEVOTHYROXINE 100 MCG (LEVOTHROID) TAB PO SCH (06:33)
[2017-03-11] MEDS: inSUlin ASPART (NovoLOG) 1 UNIT/0.01 ML (CHARGE PER UNIT) SQ SCH ×4 (06:34→17:49)
[2017-03-11] MEDS: inSUlin (REGULAR) HUMAN 1 UNIT/0.01 ML (CHARGE PER UNIT) SC SCH ×4 (06:35→21:46)
[2017-03-11 07:04] LABS: BASOPHILS % (AUTO) 0 % (0-10); EOSINOPHILS # (AUTO) 0.2 10^3/uL (0.0-0.3); EOSINOPHILS % (AUTO) 2 % (0-10); LYMPHOCYTES # (AUTO) 1.4 X 10^3 (1.0-4.0); LYMPHOCYTES % (AUTO) 15 % (12-44); MEAN CORPUSCULAR HEMOGLOBIN 27 PG (25-34); MEAN CORPUSCULAR HGB CONC 31 G/DL (32-36); MEAN CORPUSCULAR VOLUME 87 FL (80-99); MEAN PLATELET VOLUME 9.6 FL (7.4-10.4); MONOCYTES # (AUTO) 0.6 X 10^3 (0.0-1.0); MONOCYTES % (AUTO) 7 % (0-12); NEUTROPHILS # (AUTO) 6.7 X 10^3 (1.8-7.8); NEUTROPHILS % (AUTO) 76 % (42-75); PLATELET COUNT 342 10^3/uL (130-400); RED CELL DISTRIBUTION WIDTH 14.5 % (10.0-14.5); WHITE BLOOD COUNT 8.9 10^3/uL (4.3-11.0)
[2017-03-11 07:23] LABS: ANION GAP 14 MMOL/L (5-14); BLOOD UREA NITROGEN 30 MG/DL (7-18); BUN/CREATININE RATIO 34; CALCIUM 9.4 MG/DL (8.5-10.1); CARBON DIOXIDE 29 MMOL/L (21-32); CHLORIDE 94 MMOL/L (98-107); CREATININE SERUM 0.87 MG/DL (0.60-1.30); GFR ESTIMATED > 60; GLUCOSE 152 MG/DL (70-105); POTASSIUM 3.8 MMOL/L (3.6-5.0); SODIUM 137 MMOL/L (135-145)
[2017-03-11 08:00] VITALS: BP 111/60
[2017-03-11] MEDS: CYANOCOBALAMIN 500 MCG TAB (VITAMIN B-12) PO SCH (10:14)
[2017-03-11] MEDS: metFORMIN XR 500 MG (GLUCOPHAGE XR) TAB PO SCH ×2 (10:14→21:49)
[2017-03-11] MEDS: FUROSEMIDE 40 MG (LASIX) TAB PO SCH ×3 (10:15→21:49)
[2017-03-11] MEDS: meTOprolol TARTRATE 25 MG (LOPRESSOR) TABLET PO SCH ×2 (10:15→21:49)
[2017-03-11] MEDS: SPIRONOLACTONE 25 MG (ALDACTONE) TAB PO SCH (10:15)
[2017-03-11] MEDS: DOCUSATE SODIUM 100 MG (COLACE) CAP PO SCH (10:15)
[2017-03-11] MEDS: FENOFIBRATE 134 MG (LOFIBRA) CAPSULE PO SCH (10:16)
[2017-03-11] MEDS: DIGOXIN 0.25 MG (LANOXIN) TAB PO SCH (10:16)
[2017-03-11] MEDS: ASPIRIN E.C. 81 MG (ECOTRIN) TAB PO SCH (10:16)
[2017-03-11] MEDS: PANTOPRAZOLE 20 MG TABLET (PROTONIX) PO SCH (10:16)
[2017-03-11] MEDS: KCL 20 MEQ TAB (K-DUR) PO SCH ×2 (10:16→21:48)
[2017-03-11] MEDS: KETOCONAZOLE 2% CREAM 15 GM (NIZORAL) TP SCH ×2 (10:17→22:02)
[2017-03-11] MEDS: VITAMIN D3 1,000 UNITS (CHOLECALCIFEROL) TABLET PO SCH (10:17)
[2017-03-11] MEDS: MICONAZOLE 2% POWDER (DESENEX AF) 90 GM TOP SCH ×2 (10:17→22:02)
[2017-03-11] MEDS: FERROUS SULF 325 MG (IRON) TAB PO SCH (10:17)
[2017-03-11] MEDS: inSUlin DETERMIR 1 UNIT/0.01 ML (LEVEMIR) CHARGE PER UNIT SQ SCH ×2 (10:18→21:47)
[2017-03-11] MEDS: hydrOXYzine (VISTARIL) 25 MG CAP PO SCH ×3 (10:22→21:49)
[2017-03-11] MEDS: DULoxetine 30 MG (CYMBALTA) CAP PO SCH (10:27)
--- NOTE | 2017-03-11 11:08 | Progress Note (SOAP) ---
Subjective Subjective/Events-last exam Afebrile, no acute events. Review of Systems Date Seen by Provider: Mar 11, 2017 Time Seen by Provider: 09:45 Objective Exam Last Set of Vital Signs Vital Signs Date Time Temp Pulse Resp B/P (MAP) Pulse Ox O2 Delivery O2 Flow Rate FiO2 03/11/17 08:00 96.8 87 20 111/60 92 Room Air 03/10/17 15:44 4.00 Capillary Refill : Less Than 3 Seconds I&O Intake and Output 03/10/17 23:59 Intake Total 2940 ml Output Total 4300 ml Balance -1360 ml Intake Oral 2640 ml IV Total 300 ml Output Urine Total 4300 ml General: Alert, No Acute Distress Lungs: Clear to Auscultation, Normal Air Movement Heart: Regular Rate, No Murmurs Skin: Other (Left lower leg with mild erythema, marked swelling and some blistering) Psych/Mental Status: Mental Status NL Results/Procedures Lab Laboratory Tests 03/10/17 14:20: Glucometer 142H 03/10/17 20:14: Glucometer 161H 03/11/17 06:16: Glucometer 152H 03/11/17 06:53: White Blood Count 8.9, Red Blood Count 4.60, Hemoglobin 12.4, Hematocrit 40, Mean Corpuscular Volume 87, Mean Corpuscular Hemoglobin 27, Mean Corpuscular Hemoglobin Concent 31L, Red Cell Distribution Width 14.5, Platelet Count 342, Mean Platelet Volume 9.6, Neutrophils (%) (Auto) 76H, Lymphocytes (%) (Auto) 15 , Monocytes (%) (Auto) 7, Eosinophils (%) (Auto) 2, Basophils (%) (Auto) 0, Neutrophils # (Auto) 6.7, Lymphocytes # (Auto) 1.4, Monocytes # (Auto) 0.6, Eosinophils # (Auto) 0.2, Basophils # (Auto) 0.0, Sodium Level 137, Potassium Level 3.8, Chloride Level 94L, Carbon Dioxide Level 29, Anion Gap 14, Blood Urea Nitrogen 30H, Creatinine 0.87, Estimat Glomerular Filtration Rate > 60, BUN /Creatinine Ratio 34, Glucose Level 152H, Calcium Level 9.4 03/11/17 10:12: Glucometer 149H Microbiology 03/06/17 Blood Culture - Preliminary, Resulted No growth 03/06/17 Urine Culture - Final, Complete Escherichia Coli See Comments Assessment/Plan Assessment/Plan Plan SEPSIS - RESOLVED SINCE ADMISSION CELLULITIS 03/09 - much improved. no change in mgmt today. 03/10 - continues to improve 03/11 - no changes, continue current antibiotics as noted below ESBL POSITIVE ACUTE CYSTITIS 03/09 - continue meropenem. likely due to chronic sesay, which I believe she has. 03/10 - not sure if this was sterile pyuria or an actual infection, is being treated, so believe it was infection, christine with the fever at presentation. will likely need 10 days at least of merrem. probably needs swing bed because the NH cannot do the merrem there. 03/11 - discussed with pharmacy and agree that 7 days of IV meropenem should be sufficient, if she remains stable, will plan to complete 7 days (tomorrow) and then d/c to halfway PAIN CONTROL 03/09 - Explained to patient that her body habitus does make it hard to move her, and we are doing the best we can. she is already on an air mattress in a bariatric bed. DIABETES MELLITUS TYPE II -Blood sugar has been good over last 24 hours, discussed her regimen with her- home med lists fast acting with meals, but also an addition twice per day dosing as well as her long-acting twice per day. She states before the halfway, she did not do that and it has been increased a lot recently with her illness. Will change to typical basal bolus dosing and monitor. Diagnosis/Problems: Clinical Quality Measures DVT/VTE Risk/Contraindication: Risk Factor Score Per Nursin RFS Level Per Nursing on Admit: 4+=Very High MARYANA NASCIMENTO MD Mar 11, 2017 11:08 am
[2017-03-11 15:45] VITALS: BP 125/63
[2017-03-11] MEDS: RIVAROXABAN 20 MG TABLET (XARELTO) PO SCH (17:49)
[2017-03-11] MEDS: PRAMIPEXOLE 0.5 MG TAB (MIRAPEX) PO SCH ×2 (17:50→21:48)
[2017-03-11] MEDS: morphine ER 15 MG (MS CONTIN) TAB PO SCH (21:49)
[2017-03-11] MEDS: MELATONIN 3 MG TABLET PO PRN (21:49)
[2017-03-11 23:50] VITALS: BP 118/67
[2017-03-12] MEDS: MEROPENEM 500 MG/NS 100 ML IVPB IV SCH ×8 (00:07→18:06)
[2017-03-12] MEDS: ALPRAZolam 0.25 MG (XANAX) TAB PO PRN (03:21)
[2017-03-12] MEDS: inSUlin (REGULAR) HUMAN 1 UNIT/0.01 ML (CHARGE PER UNIT) SC SCH ×4 (06:05→20:52)
[2017-03-12] MEDS: LEVOTHYROXINE 100 MCG (LEVOTHROID) TAB PO SCH (06:06)
[2017-03-12] MEDS: HYDROcodone/APAP 7.5 MG/325 MG (LORTAB, LORCET PLUS) TABLET PO PRN ×3 (06:06→20:51)
[2017-03-12 06:19] LABS: MEAN PLATELET VOLUME 9.5 FL (7.4-10.4); RED BLOOD COUNT 4.38 10^6/uL (4.35-5.85); RED CELL DISTRIBUTION WIDTH 14.2 % (10.0-14.5); WHITE BLOOD COUNT 8.4 10^3/uL (4.3-11.0)
[2017-03-12 06:31] LABS: CALCIUM 9.8 MG/DL (8.5-10.1); CREATININE SERUM 0.97 MG/DL (0.60-1.30)
[2017-03-12 07:34] VITALS: BP 109/54
[2017-03-12] MEDS: inSUlin ASPART (NovoLOG) 1 UNIT/0.01 ML (CHARGE PER UNIT) SQ SCH ×3 (08:10→17:19)
--- NOTE | 2017-03-12 08:31 | Progress Note (SOAP) ---
Subjective Subjective/Events-last exam Afebrile, no acute events. Having a lot of pain in her left hip, aches at rest and makes her "scream" with movement, she is concerned because of prior lety in femur that she wonders if could be displaced. Review of Systems Date Seen by Provider: Mar 12, 2017 Time Seen by Provider: 08:10 Objective Exam Last Set of Vital Signs Vital Signs Date Time Temp Pulse Resp B/P (MAP) Pulse Ox O2 Delivery O2 Flow Rate FiO2 03/12/17 07:34 98.8 86 20 109/54 91 Room Air 03/11/17 20:10 4.00 Capillary Refill : Less Than 3 Seconds I&O Intake and Output 03/12/17 00:00 Intake Total 2780 ml Output Total 5450 ml Balance -2670 ml Intake Oral 2580 ml IV Total 200 ml Output Urine Total 5450 ml # Bowel Movements 1 General: Alert, No Acute Distress Psych/Mental Status: Mental Status NL, Mood NL Results/Procedures Lab Laboratory Tests 03/11/17 10:12: Glucometer 149H 03/11/17 15:07: Glucometer 139H 03/11/17 20:30: Glucometer 172H 03/12/17 05:55: Glucometer 175H 03/12/17 06:08: White Blood Count 8.4, Red Blood Count 4.38, Hemoglobin 12.0, Hematocrit 38, Mean Corpuscular Volume 87, Mean Corpuscular Hemoglobin 27, Mean Corpuscular Hemoglobin Concent 32, Red Cell Distribution Width 14.2, Platelet Count 354, Mean Platelet Volume 9.5, Sodium Level 137, Potassium Level 4.0, Chloride Level 95L, Carbon Dioxide Level 31, Anion Gap 11, Blood Urea Nitrogen 32H, Creatinine 0.97, Estimat Glomerular Filtration Rate 58, BUN/Creatinine Ratio 33, Glucose Level 175H, Calcium Level 9.8 Microbiology 03/06/17 Blood Culture - Final, Complete No growth 03/06/17 Urine Culture - Final, Complete Escherichia Coli See Comments Assessment/Plan Assessment/Plan Plan SEPSIS - RESOLVED SINCE ADMISSION CELLULITIS 03/09 - much improved. no change in mgmt today. 03/10 - continues to improve 03/11 - no changes, continue current antibiotics as noted below ESBL POSITIVE ACUTE CYSTITIS 03/09 - continue meropenem. likely due to chronic sesay, which I believe she has. 03/10 - not sure if this was sterile pyuria or an actual infection, is being treated, so believe it was infection, christine with the fever at presentation. will likely need 10 days at least of merrem. probably needs swing bed because the NH cannot do the merrem there. 03/11 - discussed with pharmacy and agree that 7 days of IV meropenem should be sufficient, if she remains stable, will plan to complete 7 days (tomorrow) and then d/c to [facility] 03/12 - stable, plan for d/c tomorrow after completing antibiotics PAIN CONTROL 03/09 - Explained to patient that her body habitus does make it hard to move her, and we are doing the best we can. she is already on an air mattress in a bariatric bed. 03/12 - will x-ray left hip DIABETES MELLITUS TYPE II -Blood sugar has been good over last 24 hours, discussed her regimen with her- home med lists fast acting with meals, but also an addition twice per day dosing as well as her long-acting twice per day. She states before the [facility], she did not do that and it has been increased a lot recently with her illness. Will change to typical basal bolus dosing and monitor. Diagnosis/Problems: Clinical Quality Measures DVT/VTE Risk/Contraindication: Risk Factor Score Per Nursin RFS Level Per Nursing on Admit: 4+=Very High MARYANA NASCIMENTO MD Mar 12, 2017 8:31 am
[2017-03-12] MEDS: FUROSEMIDE 40 MG (LASIX) TAB PO SCH ×3 (10:39→20:50)
[2017-03-12] MEDS: metFORMIN XR 500 MG (GLUCOPHAGE XR) TAB PO SCH ×2 (10:40→20:51)
[2017-03-12] MEDS: DOCUSATE SODIUM 100 MG (COLACE) CAP PO SCH (10:40)
[2017-03-12] MEDS: KCL 20 MEQ TAB (K-DUR) PO SCH ×2 (10:40→20:50)
[2017-03-12] MEDS: CYANOCOBALAMIN 500 MCG TAB (VITAMIN B-12) PO SCH (10:41)
[2017-03-12] MEDS: meTOprolol TARTRATE 25 MG (LOPRESSOR) TABLET PO SCH ×2 (10:41→20:51)
[2017-03-12] MEDS: hydrOXYzine (VISTARIL) 25 MG CAP PO SCH ×3 (10:41→20:50)
[2017-03-12] MEDS: FERROUS SULF 325 MG (IRON) TAB PO SCH (10:41)
[2017-03-12] MEDS: DULoxetine 30 MG (CYMBALTA) CAP PO SCH (10:42)
[2017-03-12] MEDS: ASPIRIN E.C. 81 MG (ECOTRIN) TAB PO SCH (10:42)
[2017-03-12] MEDS: FENOFIBRATE 134 MG (LOFIBRA) CAPSULE PO SCH (10:42)
[2017-03-12] MEDS: SPIRONOLACTONE 25 MG (ALDACTONE) TAB PO SCH (10:42)
[2017-03-12] MEDS: PANTOPRAZOLE 20 MG TABLET (PROTONIX) PO SCH (10:42)
[2017-03-12] MEDS: DIGOXIN 0.25 MG (LANOXIN) TAB PO SCH (10:42)
[2017-03-12] MEDS: VITAMIN D3 1,000 UNITS (CHOLECALCIFEROL) TABLET PO SCH (10:42)
[2017-03-12] MEDS: inSUlin DETERMIR 1 UNIT/0.01 ML (LEVEMIR) CHARGE PER UNIT SQ SCH ×2 (10:43→20:49)
[2017-03-12] MEDS: KETOCONAZOLE 2% CREAM 15 GM (NIZORAL) TP SCH ×2 (10:44→20:52)
[2017-03-12] MEDS: MICONAZOLE 2% POWDER (DESENEX AF) 90 GM TOP SCH ×2 (10:44→20:52)
[2017-03-12 16:04] VITALS: BP 110/64
[2017-03-12] MEDS: RIVAROXABAN 20 MG TABLET (XARELTO) PO SCH (17:19)
[2017-03-12] MEDS: PRAMIPEXOLE 0.5 MG TAB (MIRAPEX) PO SCH ×2 (18:05→20:50)
[2017-03-12] MEDS ORDERED: PRAMIPEXOLE 0.5 MG TAB (MIRAPEX) ONE (20:36)
[2017-03-12] MEDS: morphine ER 15 MG (MS CONTIN) TAB PO SCH (20:51)
[2017-03-12] MEDS: MELATONIN 3 MG TABLET PO PRN (20:51)
[2017-03-12 22:00] VITALS: BP 128/73
[2017-03-13] VITALS: BP 126/74
[2017-03-13] MEDS: MEROPENEM 500 MG/NS 100 ML IVPB IV SCH ×4 (00:03→06:42)
[2017-03-13] MEDS: HYDROcodone/APAP 7.5 MG/325 MG (LORTAB, LORCET PLUS) TABLET PO PRN (04:17)
[2017-03-13] MEDS: inSUlin (REGULAR) HUMAN 1 UNIT/0.01 ML (CHARGE PER UNIT) SC SCH ×2 (06:28→09:57)
[2017-03-13] MEDS: LEVOTHYROXINE 100 MCG (LEVOTHROID) TAB PO SCH (06:40)
[2017-03-13] MEDS: inSUlin ASPART (NovoLOG) 1 UNIT/0.01 ML (CHARGE PER UNIT) SQ SCH (07:28)
[2017-03-13 08:08] VITALS: BP 116/71
[2017-03-13] MEDS: metFORMIN XR 500 MG (GLUCOPHAGE XR) TAB PO SCH (09:45)
[2017-03-13] MEDS: FERROUS SULF 325 MG (IRON) TAB PO SCH (09:45)
[2017-03-13] MEDS: hydrOXYzine (VISTARIL) 25 MG CAP PO SCH (09:45)
[2017-03-13] MEDS: DOCUSATE SODIUM 100 MG (COLACE) CAP PO SCH (09:46)
[2017-03-13] MEDS: CYANOCOBALAMIN 500 MCG TAB (VITAMIN B-12) PO SCH (09:46)
[2017-03-13] MEDS: DIGOXIN 0.25 MG (LANOXIN) TAB PO SCH (09:46)
[2017-03-13] MEDS: VITAMIN D3 1,000 UNITS (CHOLECALCIFEROL) TABLET PO SCH (09:46)
[2017-03-13] MEDS: KCL 20 MEQ TAB (K-DUR) PO SCH (09:46)
[2017-03-13] MEDS: meTOprolol TARTRATE 25 MG (LOPRESSOR) TABLET PO SCH (09:46)
[2017-03-13] MEDS: FUROSEMIDE 40 MG (LASIX) TAB PO SCH (09:47)
[2017-03-13] MEDS: ASPIRIN E.C. 81 MG (ECOTRIN) TAB PO SCH (09:47)
[2017-03-13] MEDS: SPIRONOLACTONE 25 MG (ALDACTONE) TAB PO SCH (09:47)
[2017-03-13] MEDS: PANTOPRAZOLE 20 MG TABLET (PROTONIX) PO SCH (09:47)
[2017-03-13] MEDS: FENOFIBRATE 134 MG (LOFIBRA) CAPSULE PO SCH (09:47)
[2017-03-13] MEDS: inSUlin DETERMIR 1 UNIT/0.01 ML (LEVEMIR) CHARGE PER UNIT SQ SCH (09:51)
[2017-03-13] MEDS: MICONAZOLE 2% POWDER (DESENEX AF) 90 GM TOP SCH (09:52)
[2017-03-13] MEDS: KETOCONAZOLE 2% CREAM 15 GM (NIZORAL) TP SCH (09:52)
[2017-03-13] MEDS: DULoxetine 30 MG (CYMBALTA) CAP PO SCH (09:57)
--- NOTE | 2017-03-13 10:42 | Discharge Instructions ---
Discharge [facility] Discharge Medications Continued Medications: Acetaminophen (Tylenol Extra Strength) 500 Mg Tablet 1000 MG PO Q8H PRN for TEMP ABOVE 100.5, TAB TAKES 2 (500MG) TABLETS Alprazolam (Alprazolam) 0.25 Mg Tablet 0.25 MG PO Q12H PRN for ANXIETY, TAB Aspirin (Aspirin EC) 81 Mg Tablet.dr 81 MG PO DAILY, TAB Bisacodyl (Bisacodyl) 5 Mg Tablet.dr 5 MG PO DAILY PRN for CONSTIPATION, TAB Bisacodyl (Bisacodyl) 5 Mg Tablet.dr 10 MG PO DAILY PRN for SEVERE CONSTIPATION, TAB TAKES 2 (5MG) TABLETS Cholecalciferol (Vitamin D3) (Vitamin D3) 1,000 Unit Capsule 1000 UNIT PO DAILY, CAP Cyanocobalamin (Vitamin B-12) (B-12) 1,000 Mcg Tablet 1000 MCG PO DAILY, TAB Dextromethorphan HBr (Tussin Cough) 15 Mg/5 Ml Liquid 10 ML PO Q4H PRN for COUGH, EA Digoxin (Digoxin) 250 Mcg Tablet 250 MCG PO DAILY, TAB Docusate Sodium (Colace) 100 Mg Cap 200 MG PO DAILY, CAP TAKES 2 (100MG) CAPSULES Duloxetine HCl (Duloxetine HCl) 60 Mg Capsule.dr 60 MG PO DAILY, CAP Fenofibrate Nanocrystallized (Fenofibrate) 145 Mg Tablet 145 MG PO DAILY, TAB Ferrous Sulfate (Ferrous Sulfate) 325 Mg Tablet 325 MG PO DAILY, TAB Furosemide (Furosemide) 40 Mg Tablet 100 MG PO TID, TAB TAKES 2.5 (40MG) TABLETS Glycerin/Propylene Glycol (Lubricant Eye Drops) 15 Ml Drops 1 DROP OS Q6H PRN for EYE REDNESS, DROPS Hydrocodone/Acetaminophen (Hydrocodon -Acetaminophen 5-325) 1 Each Tablet 1 TAB PO Q6H PRN for PAIN-MODERATE, TAB Hydroxyzine HCl (Hydroxyzine HCl) 50 Mg Tablet 50 MG PO TID, TAB Insulin Aspart (Novolog) 100 Unit/1 Ml Susp 45 UNIT SQ TIDAC, ML Insulin Detemir (Levemir Flextouch) 100 Unit/1 Ml Insuln.pen 90 UNITS SC BID, EA Ketoconazole (Ketoconazole) 15 Gm Cream..g. TP BID, TUBE APPLY TO AMANDO AREA AND BUTTOCKS TOPICALLY FOR YEAST INFECTION, BURNING, ITCHING Levothyroxine Sodium (Levo-T) 200 Mcg Tablet 400 MCG PO DAILY, TAB TAKES 2 (200MCG) TABLETS Loperamide HCl (Imodium A-D) 2 Mg Tablet PO UD PRN for LOOSE STOOLS, TAB TAKE 2 TABLETS AFTER FIRST LOOSE STOOL AND 1 AFTER EACH FOLLOWING NTE 4/24 HOURS Melatonin (Melatonin) 3 Mg Tablet 3 MG PO HS PRN for INSOMNIA, TAB Metformin HCl (Metformin HCl ER) 500 Mg Tab.er.24h 500 MG PO BID, TAB Metoprolol Tartrate (Metoprolol Tartrate) 25 Mg Tablet 25 MG PO BID, TAB Mineral Oil/Petrolatum,White (Eucerin Creme) 120 Gm Cream..g. TP Q6H PRN for DRY SKIN, TUBE Morphine Sulfate (Morphine Sulfate ER) 15 Mg Tablet.er 15 MG PO HS, TAB Nystatin (Nystop) 60 Gm Powder TOP BID, EA APPLY UNDER ABDOMINAL FOLDS Omeprazole (Omeprazole) 20 Mg Capsule.dr 20 MG PO DAILY, CAP Ondansetron HCl (Ondansetron HCl) 4 Mg Tablet 4 MG PO Q4H PRN for NAUSEA/VOMITING-1ST LINE, TAB Polyethylene Glycol 3350 (Polyethylene Glycol 3350) 255 Gm Powder 17 GM PO HS PRN for CONSTIPATION-2ND LINE, EA Potassium Chloride (Potassium Chloride) 20 Meq Tab.er.prt 40 MEQ PO BID, TAB TAKES 2 (20MEQ) TABLETS Pramipexole Di-HCl (Pramipexole Dihydrochloride) 1.5 Mg Tablet 3 MG PO 2000, TAB TAKES 2 (1.5MG) TABLETS Pramipexole Di-HCl (Pramipexole Dihydrochloride) 1.5 Mg Tablet 1.5 MG PO 1800, TAB Rivaroxaban (Xarelto) 20 Mg Tablet 20 MG PO 1700, TAB Spironolactone (Spironolactone) 25 Mg Tablet 25 MG PO DAILY, TAB [Triamcinolone 0.1%] () TOP BID 0.1% CREAM APPLY TO UPPER ARMS UNTIL HEALED Discontinued Medications: Hydrocortisone Acetate (Hydrocortisone) 28 Gm Oint...g. TP Q6H PRN for ITCHING, TUBE 2.5% Insulin Aspart (Novolog) 100 Unit/1 Ml Susp SQ 0700,1700, ML 200-250=10 UNITS 251-300=20 UNITS 301-350=25 UNITS 351-400=30 UNITS 401-450=35 UNITS 451-500=4O UNITS NOTIFY PHYSICAIN FOR BS<70 OR >501 Patient Instructions Goal/Follow Up Appt: Lilly Stewart will see you [facility] the [facility] for follow-up. Return to The Hospital For: Fever Activity & Diet Discharge Diet: ADA Diet Activity as Tolerated: Yes Copy Copies To 1: ANTOINETTE Rose BETHANY N MD Mar 13, 2017 10:42 am
--- NOTE | 2017-03-13 10:44 | Discharge Summary ---
Diagnosis/Chief Complaint Date of Admission Mar 06, 2017 at 11:40 am Date of Discharge March 13, 2017 Admission Diagnosis Admission Diagnosis SEPSIS CELLULITIS LEFT HIP PAIN DIABETES MELLITUS TYPE II Discharge Diagnosis SEPSIS - RESOLVED SINCE ADMISSION CELLULITIS -Completed 7 days of meropenem as noted below ESBL POSITIVE ACUTE CYSTITIS 03/10 - not sure if this was sterile pyuria or an actual infection, is being treated, so believe it was infection, christine with the fever at presentation. will likely need 10 days at least of merrem. probably needs swing bed because the NH cannot do the merrem there. 03/11 - discussed with pharmacy and agree that 7 days of IV meropenem should be sufficient, if she remains stable, will plan to complete 7 days (tomorrow) and then d/c to [facility] PAIN CONTROL/LEFT HIP PAIN 03/09 - Explained to patient that her body habitus does make it hard to move her, and we are doing the best we can. she is already on an air mattress in a bariatric bed. 03/12 - attempted to obtain x-ray, but unable to be done due to body habitus, discussed that she is unlikely to be good surgical candidate even if an abnormal finding were noted on x-ray as she has multiple comorbidities and is non-ambulatory, so pain control is the current goal DIABETES MELLITUS TYPE II -Blood sugar has been good over last 24 hours, discussed her regimen with her- home med lists fast acting with meals, but also an addition twice per day dosing as well as her long-acting twice per day. She states before the [facility], she did not do that and it has been increased a lot recently with her illness. Will change to typical basal bolus dosing and monitor. Chief Complaint/HPI Chief Complaint/HPI From Dr. Carvajal's H&P: "CC: Left red leg HPI: This is a 66 [address] pt of [address] Cook who presented to the ER yesterday with left leg cellulitis, UTI, and hyperglycemia. Pt's BMI is in the 70s and sugar level was in the 400s in ER. WBC 7.5 Lactic acid was 2.31 now dropped to 1.64, will heplock IVF, blood sugars now in the 300s Patient Interview: Pt confirms being at [facility]. Pt believes that her leg is not as red and her toes look better. Pt states that when she was rolled by nursing staff, her leg rubbed uncomfortably. Physical exam stable. Pt states that she has been eating and drinking Pt has not been ambulating but is being moved by nursing staff I informed pt that I will restart her home meds Pt denies wound care" Discharge Summary-Simple/Stand Consultations Discharge Physical Examination Allergies: Coded Allergies: levofloxacin (Verified Allergy, Unknown, 05/19/16) mushroom (Unverified Allergy, Unknown, 06/21/16) FROM UNCODED ALLERGIES nafcillin (Unverified Allergy, Unknown, 02/27/15) Vitals & I&Os Vital Sign - Last 12Hours Date Time Temp Pulse Resp B/P (MAP) Pulse Ox O2 Delivery O2 Flow Rate FiO2 03/13/17 08:08 97.5 84 20 116/71 94 Room Air 03/13/17 07:38 4.00 Intake and Output 03/13/17 00:00 Intake Total 4080 ml Output Total 4475 ml Balance -395 ml General Appearance: Alert, No Acute Distress Extremities: Other (Bilateral leg swelling, left leg with no significant erythema compared to right at this time) Neuro: Normal Speech Hospital Course See final discharge diagnosis. Labs Laboratory Tests Test 03/11/17 15:07 03/11/17 20:30 03/12/17 05:55 03/12/17 06:08 Range/Units Glucometer 139 H 172 H 175 H 70-110 MG/DL White Blood Count 8.4 4.3-11.0 10^3/uL Red Blood Count 4.38 4.35-5.85 10^6/uL Hemoglobin 12.0 11.5-16.0 G/DL Hematocrit 38 35-52 % Mean Corpuscular Volume 87 80-99 FL Mean Corpuscular Hemoglobin 27 25-34 PG Mean Corpuscular Hemoglobin Concent 32 32-36 G/DL Red Cell Distribution Width 14.2 10.0-14.5 % Platelet Count 354 130-400 10^3/uL Mean Platelet Volume 9.5 7.4-10.4 FL Sodium Level 137 135-145 MMOL/L Potassium Level 4.0 3.6-5.0 MMOL/L Chloride Level 95 L 98-107 MMOL/L Carbon Dioxide Level 31 21-32 MMOL/L Anion Gap 11 5-14 MMOL/L Blood Urea Nitrogen 32 H 7-18 MG/DL Creatinine 0.97 0.60-1.30 MG/DL Estimat Glomerular Filtration Rate 58 BUN/Creatinine Ratio 33 Glucose Level 175 H 70-105 MG/DL Calcium Level 9.8 8.5-10.1 MG/DL Test 03/12/17 10:35 03/12/17 14:21 03/12/17 20:17 03/13/17 06:21 Range/Units Glucometer 184 H 162 H 135 H 127 H 70-110 MG/DL Test 03/13/17 09:53 Range/Units Glucometer 170 H 70-110 MG/DL Discharge Instructions to patient/family Please see electonic discharge instructions given to patient. Discharge Medications Reviewed and agree with Discharge Medication list on patient's Discharge Instruction sheet Clinical Quality Measures DVT/VTE Risk/Contraindication: Risk Factor Score Per Nursin RFS Level Per Nursing on Admit: 4+=Very High Copy Copies To 1: ANTOINETTE Rose BETHANY N MD Mar 13, 2017 10:44 am
[2017-06-26] MEDS ORDERED: DOCU100C37 PO (15:26)
[2017-06-26] MEDS ORDERED: MAG30ORA2 PO (15:26)
[2017-06-26] MEDS ORDERED: BISA5TAB8 PO (15:26)
[2017-06-26] MEDS ORDERED: RISP1TAB3 PO (15:26)
[2017-06-26] MEDS ORDERED: DULA0.75 SC (15:26)
[2017-06-26] MEDS ORDERED: METH113C21 TP (15:26)
[2017-06-26] MEDS ORDERED: DIGO125T PO (15:26)
[2017-06-26] MEDS ORDERED: CRAN450T9 PO (15:26)
[2017-06-26] MEDS ORDERED: DULO60CA58 PO (15:26)
[2017-06-26] MEDS ORDERED: LORA0.5T PO (15:26)
[2017-06-26] MEDS ORDERED: TR1C15 TP (15:26)
[2017-06-26] MEDS ORDERED: OMEP20CA12 PO (15:26)
[2017-06-28] MEDS ORDERED: DILT120C63 PO (10:29)
[2017-06-28] MEDS ORDERED: ASPI325T32 PO (10:29)
== END 2017-03-13 12:15 | DRG 872 ==
LOC: EDUNIT# 10:21 → ER 10:23 → 4TH 11:40
PROVIDERS: ADMIT Internal Medicine; ATTEND Internal Medicine
DX: A41.9 Sepsis, unspecified organism (principal); L03.116 Cellulitis of left lower limb; T83.511A Infection and inflammatory reaction due to indwelling urethral catheter, initial encounter; N30.00 Acute cystitis without hematuria; Z68.45 Body mass index [BMI] 70 or greater, adult; E66.01 Morbid (severe) obesity due to excess calories; E11.65 Type 2 diabetes mellitus with hyperglycemia; E11.40 Type 2 diabetes mellitus with diabetic neuropathy, unspecified; M25.552 Pain in left hip; J44.9 Chronic obstructive pulmonary disease, unspecified; G47.33 Obstructive sleep apnea (adult) (pediatric); I11.0 Hypertensive heart disease with heart failure; I50.9 Heart failure, unspecified; I27.2 Other secondary pulmonary hypertension; G14 Postpolio syndrome; E78.5 Hyperlipidemia, unspecified; G25.81 Restless legs syndrome; M19.91 Primary osteoarthritis, unspecified site; M21.379 Foot drop, unspecified foot; E03.9 Hypothyroidism, unspecified; K21.9 Gastro-esophageal reflux disease without esophagitis; K59.09 Other constipation; F41.9 Anxiety disorder, unspecified; F32.9 Major depressive disorder, single episode, unspecified; G47.9 Sleep disorder, unspecified; Q24.9 Congenital malformation of heart, unspecified; Z87.19 Personal history of other diseases of the digestive system
CPT/HCPCS: 36415; 51702; 71010; 80048; 80053; 80202; 81000; 82962; 83605; 85025; 85027; 85610; 85730; 87040; 87088; 87186; 94760; 96374; 96375

== ENCOUNTER → 2017-04-07 | Outpatient (CLI) | payer MEDICARE, OTHER, MEDICAID ==
[~2017-04-07] MED LIST changes: +ALPR0.254 PO; +DEXT15LI5 PO; +GLYC15DR3 OS; +GUAI100L34 PO; +HYDR28OI2 TP; +INSU100V16 SQ; +KETO15CR2 TP; +METF500T8 PO; +ONDA4TAB10 PO; +TRIAMCINOLONE 0.1% TOP
[2017-04-07 16:28] LABS: BILIRUBIN,URINE NEGATIVE (NEGATIVE); KETONES,URINE NEGATIVE (NEGATIVE); LEUKOCYTE ESTERASE ,URINE 2+ (NEGATIVE); NITRITE,URINE NEGATIVE (NEGATIVE); PH,URINE 6.5 (5-9); PROTEIN,URINE 1+ (NEGATIVE); UROBILINOGEN,URINE NORMAL (NORMAL)
[2017-04-07 16:42] LABS: HYALINE CASTS, URINE RARE /LPF; SQUAMOUS EPITHELIAL CELL,UR 0-2 /HPF; WBC,URINE 50-100 /HPF
== END ==
LOC: LABNPT 13:50
PROVIDERS: ATTEND Internal Medicine
DX: N39.0 Urinary tract infection, site not specified (principal)
CPT/HCPCS: 81000; 87077; 87088